=== PATIENT | male | born 1950 | race Caucasian/White ===

== ENCOUNTER 2017-11-22 08:10 | Inpatient (IN) | payer MEDICARE, BC ==
[2017-11-22] MEDS ORDERED: SODIUM CHLORIDE 0.9% 1,000 ML IV STA (08:14)
[2017-11-22] MEDS ORDERED: HEPARIN SODIUM,PORCINE 5,000 UNIT/ML 1 ML VIAL IV PRN (08:14)
[2017-11-22] MEDS ORDERED: HEPARIN SODIUM,PORCINE 5,000 UNIT/ML 1 ML VIAL IV ONE (08:14)
[2017-11-22] MEDS ORDERED: ASPIRIN 81 MG PO STA (08:14)
[2017-11-22] MEDS ORDERED: HEPARIN SOD,PORK IN 0.45% NACL 25,000 UNIT in 0.45% NACL 1 500ML.BAG IV SCH (08:15)
--- NOTE | 2017-11-22 08:17 | ED ---
General Adult HPI - General Stated complaint: Poss STEMI Time Seen by Provider: 11/22/17 08:14 Source: RN notes reviewed, old records reviewed - History of Present Illness Initial comments: This is a 67-year-old male the ER for evaluation significant chest pain significant acute chest pain. Patient's brought in by EMS for evaluation, patient is having severe anterior chest pain with heaviness, shortness of breath positive diaphoresis. Patient does have history of CVA with no deficit, no heart history - Related Data Home Medications Medication Instructions Recorded Confirmed Aspirin [Adult Low Dose Aspirin EC] 81 mg PO HS 12/20/14 11/22/17 Atorvastatin [Lipitor] 20 mg PO HS 12/20/14 11/22/17 Fenofibric Acid (Choline) 135 mg PO HS 12/20/14 11/22/17 [Trilipix] Losartan/Hydrochlorothiazide 1 tab PO DAILY 12/20/14 11/22/17 [Losartan-Hctz 100-25 mg Tab] Multivit-Mins/Iron/Folic/Lycop 1 tab PO DAILY 12/20/14 11/22/17 [Centrum Men's Tablet] Testosterone Cypionate 200 mg IM Q14D 12/20/14 11/22/17 [Depo-Testosterone] amLODIPine [Norvasc] 5 mg PO BID 12/20/14 11/22/17 carBAMazepine [TEGretol XR] 200 mg PO DAILY 12/20/14 11/22/17 Cholecalciferol [Vitamin D3] 1,000 unit PO DAILY 11/22/17 11/22/17 Ezetimibe [Zetia] 10 mg PO DAILY 11/22/17 11/22/17 Previous Rx's Medication Instructions Recorded Carvedilol [Coreg] 6.25 mg PO BID-W/MEALS #60 tab 11/25/17 Nitroglycerin Sl Tabs [Nitrostat] 0.4 mg SUBLINGUAL Q5M PRN #25 tab 11/25/17 Ticagrelor [Brilinta] 90 mg PO BID #60 tab 11/25/17 Allergies Allergy/AdvReac Type Severity Reaction Status Date / Time No Known Allergies Allergy Verified 11/22/17 08:44 Review of Systems ROS Statement: Those systems with pertinent positive or pertinent negative responses have been documented in the HPI. ROS Other: All systems not noted in ROS Statement are negative. Past Medical History Past Medical History: CVA/TIA, GERD/Reflux, Hyperlipidemia, Hypertension, Osteoarthritis (OA), Sleep Apnea/CPAP/BIPAP Additional Past Medical History / Comment(s): 12/20/14 Pt is a direct admit for infected L elbow. Pt notices swelling and pain and redness in L elbow starting about 3 weeks ago. He has completed 2 different p.o. ABX. Other HX: Recent stress test, U/S of caratids and echo all normal, 1998 TIA, MAX with CPAP use, nephrolithiasis and has 2 kidney stones still in kidney x 10 yrs, crush injury yrs ago involving 2 vertebrae low back and L ankle, L leg larger due to injury, low testosterone, 2008 L rib fxs, cervical pain in past with numbness and tingling bilateral arms-much better after surgery, L/R knee arthritic pain, occasional cough, History of Any Multi-Drug Resistant Organisms: None Reported Past Surgical History: Back Surgery, Orthopedic Surgery, Tonsillectomy Additional Past Surgical History / Comment(s): 2008 repair L thoracic hernia ( between ribs) with rib bx-benign, cervical injections 6 cervical fusions done in 2 separate cervical surgeries, 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 Past Anesthesia/Blood Transfusion Reactions: Postoperative Nausea & Vomiting ( PONV) Past Psychological History: No Psychological Hx Reported Additional Psychological History / Comment(s): Pt resides alone. He is independent. He uses no device. He drives. He normally works out daily. 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 He was in the , the [employer] when he was [age]. the only time he smoked was at that time. He denies recreational drug use. No significant difficulties with alcohol. He has no international travels. No animal exposures. Smoking Status: Former smoker Past Alcohol Use History: Occasional Additional Past Alcohol Use History / Comment(s): Pt quiet smoking in 1973 and smoked for about 5-6 yrs. Past Drug Use History: None Reported - Past Family History Father Family Medical History: CVA/TIA Additional Family Medical History / Comment(s): Father of CVA at age 80 yrs. Mother Family Medical History: Cancer Additional Family Medical History / Comment(s): Mother had multiple types of cancers. She at age 92 yrs. General Exam General appearance: alert, in no apparent distress Head exam: Present: atraumatic, normocephalic, normal inspection Eye exam: Present: normal appearance, PERRL, EOMI. Absent: scleral icterus, conjunctival injection, periorbital swelling ENT exam: Present: normal exam, mucous membranes moist Neck exam: Present: normal inspection. Absent: tenderness, meningismus, lymphadenopathy Respiratory exam: Present: normal lung sounds bilaterally. Absent: respiratory distress, wheezes, rales, rhonchi, stridor Cardiovascular Exam: Present: regular rate, normal rhythm, normal heart sounds. Absent: systolic murmur, diastolic murmur, rubs, gallop, clicks GI/Abdominal exam: Present: soft, normal bowel sounds. Absent: distended, tenderness, guarding, rebound, rigid Extremities exam: Present: normal inspection, full ROM, normal capillary refill. Absent: tenderness, pedal edema, joint swelling, calf tenderness Back exam: Present: normal inspection Neurological exam: Present: alert, oriented X3, CN II-XII intact Psychiatric exam: Present: normal affect, normal mood Skin exam: Present: warm, dry, intact, normal color. Absent: rash Course Vital Signs 11/22/17 11/22/17 11/22/17 08:14 08:25 08:37 Temperature 96.9 F L Pulse Rate 69 48 L 48 L Respiratory 18 18 18 Rate Blood Pressure 122/67 116/67 129/72 O2 Sat by Pulse 96 94 L 97 Oximetry - Reevaluation(s) Reevaluation #1: Code STEMI is paged, patient is seen by cardiology here in emergency room and taken to research laboratory manager Medical Decision Making - Medical Decision Making 67 male the ER for evaluation chest pain, positive STEMI and EKG, patient admitted for cardiac treatment evaluation, monitoring hemodynamic - Lab Data Result diagrams: 11/25/17 06:27 11/25/17 06:27 - Radiology Data Radiology results: report reviewed (Chest x-rays negative), image reviewed Critical Care Time Critical Care Time: Yes Total Critical Care Time: 31 Disposition Clinical Impression: ST elevation myocardial infarction (STEMI) Disposition: ADMITTED IP TO THIS HOSP Condition: Serious Is patient prescribed a controlled substance at d/c from ED?: No
--- NOTE | 2017-11-22 08:35 | XR ---
EXAMINATION TYPE: XR chest 1V portable DATE OF EXAM: 11/22/2017 COMPARISON: Prior chest x-ray 12/24/2008 HISTORY: Chest pain, myocardial infarction TECHNIQUE: Single frontal view of the chest is obtained. FINDINGS: Patient is rotated and lung volumes are low, technique is apical lordotic. Heart size may be accentuated by rotation. There are overlying cardiac leads. Postop change noted to the cervical sp ine. There is no evident airspace disease, pneumothorax, or pleural effusion. Central vascularity is mildly prominent. IMPRESSION: Rotated exam. Difficult to exclude some pulmonary venous hypertension, early interstitia l edema. Follow-up recommended.
[2017-11-22 08:42] LABS: Albumin 3.7 g/dL (3.5-5.0); Calcium 9.2 mg/dL (8.4-10.2); Magnesium 1.7 mg/dL (1.6-2.3); Potassium 4.5 mmol/L (3.5-5.1); Total Bilirubin 0.4 mg/dL (0.2-1.3); Total Protein 6.1 g/dL (6.3-8.2)
[2017-11-22 08:44] LABS: RDW 13.4 % (11.5-15.5)
[2017-11-22 08:47] LABS: Basophils % (A) 1 %; Eosinophils # (A) 0.2 k/uL (0-0.7); Eosinophils % (A) 3 %; HGB 18.1 gm/dL (13.0-17.5); Lymphocytes % (A) 28 %; MCH 29.6 pg (25.0-35.0); MCHC 32.4 g/dL (31.0-37.0); MCV 91.3 fL (80.0-100.0); Mean Platelet Volume 7.2; Monocytes # (A) 0.4 k/uL (0-1.0); Monocytes % (A) 6 %; Neutrophils # (A) 4.2 k/uL (1.3-7.7); Neutrophils % (A) 59 %; Platelet Count 220 k/uL (150-450); WBC 7.1 k/uL (3.8-10.6)
[2017-11-22 08:48] LABS: HCT 55.7 % (39.0-53.0)
[2017-11-22] MEDS ORDERED: SODIUM CHLORIDE 0.9% 1,000 ML IV ONE (08:49)
[2017-11-22] MEDS ORDERED: LIDOCAINE 1% INJ 10MG/ML (20 ML MDV) ONE (08:50)
[2017-11-22] MEDS ORDERED: MIDAZOLAM 2 MG/2 ML VIAL ONE (08:51)
[2017-11-22] MEDS ORDERED: diphenhydrAMINE 50 MG/ML 1 ML VIAL ONE (08:51)
[2017-11-22] MEDS ORDERED: LIDOCAINE 1% INJ 10MG/ML (20 ML MDV) SQ ONE (08:55)
[2017-11-22] MEDS ORDERED: NITROGLYCERIN SL TABS 0.4 MG TAB SUBLINGUAL STA (08:58)
[2017-11-22] MEDS ORDERED: ATORVASTATIN 80 MG TAB PO SCH (09:00)
[2017-11-22] MEDS ORDERED: MIDAZOLAM 2 MG/2 ML VIAL IVP ONE ×2 (09:03→09:35)
[2017-11-22] MEDS ORDERED: diphenhydrAMINE 50 MG/ML 1 ML VIAL IVP ONE (09:03)
[2017-11-22] MEDS ORDERED: TICAGRELOR 90 MG TAB ONE (09:04)
--- NOTE | 2017-11-22 09:04 | CONS ---
CONSULTATION A 67-year-old male patient presented to the hospital after experiencing chest heaviness and tightness that started while he was eating breakfast. Discomfort started about 45 minutes prior to presentation. He called EMS. The EMS ECG showed mild ST elevation in the inferior leads. Blood pressure in the 90s. He is still experiencing chest discomfort while he is in the ER. His repeat 12-lead ECG confirms ST elevation in the inferior leads. His blood pressure is 122/67 mmHg, pulse rate in the 60s, afebrile 96.9 degree Fahrenheit. PAST HISTORY: Past history of hypertension and dyslipidemia. He takes antihypertensive therapy as well as medication for dyslipidemia. He is a patient of Dr. Zamora and just saw him. MEDICATIONS: Medications were reviewed and documented in the chart include aspirin, atorvastatin, fenofibric acid, losartan hydrochlorothiazide, multivitamins, amlodipine. He also takes Tegretol. ALLERGIES: No known drug allergies. He has a history of hypertension, dyslipidemia, history of CVA, osteoarthritis, and sleep apnea and uses CPAP mask. He is a nondiabetic. SOCIAL HISTORY: No history of smoking. REVIEW OF SYSTEMS: No fever, chills, or rigors. No cough or expectoration. No nausea, vomiting, or diarrhea. No hematuria or dysuria. Past history of strokes. History of seizures. Complaining of precordial tightness. IMPRESSION: 1. A 67-year-old male patient who presented to the emergency room for chest tightness that started about 45 minutes prior to presentation associated with low blood pressure according to the EMS personnel with ST elevation in the inferior leads consistent with an inferior wall myocardial infarction, acute. 2. Hypertension. 3. Dyslipidemia. 4. Obstructive sleep apnea. SUGGEST: Proceed with coronary angiography urgently. Discussed with Dr. Zamora, who is in the of a difficult coronary intervention. Will have Dr. Berumen proceed with coronary angiography and coronary stenting. 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 MMODL / IJN: [id number] /
[2017-11-22 09:05] LABS: Creatine Kinase 168 U/L (55-170)
[2017-11-22] MEDS ORDERED: BIVALIRUDIN 250 MG VIAL IV ONE ×3 (09:05)
[2017-11-22] MEDS ORDERED: BIVALIRUDIN 250 MG in SODIUM CHLORIDE 0.9% 50 ML IV ONE (09:05)
[2017-11-22] MEDS ORDERED: TICAGRELOR 90 MG TAB PO ONE (09:05)
[2017-11-22] MEDS ORDERED: IOPAMIDOL-370 100ML BTL INJ ONE ×2 (09:17→09:36)
[2017-11-22 09:18] LABS: Creatine Kinase MB 3.2 ng/mL (0.0-2.4); Troponin I <0.012 ng/mL (0.000-0.034)
[2017-11-22] MEDS ORDERED: NITROGLYCERIN SL TABS 0.4 MG TAB SUBLINGUAL PRN (09:52)
[2017-11-22] MEDS ORDERED: ZOLPIDEM 5 MG TAB PO PRN (09:52)
[2017-11-22] MEDS ORDERED: ATROPINE SULFATE 0.1 MG/ML 10ML SYRINGE IV PRN (09:52)
[2017-11-22] MEDS ORDERED: RX INFO: IV CONTRAST WAS GIVEN 1 EACH MISC MISCELLANE PRN (09:52)
[2017-11-22] MEDS ORDERED: MAG HYDROX/AL HYDROX/SIMETH 30 ML CUP PO PRN (09:52)
[2017-11-22] MEDS ORDERED: SODIUM CHLORIDE 0.9% 1,000 ML IV SCH (10:00)
[2017-11-22] MEDS ORDERED: MORPHINE SULFATE 2 MG/ML SYRINGE IVP PRN (10:25)
[2017-11-22] MEDS ORDERED: MORPHINE SULFATE 2 MG/ML SYRINGE ONE (10:28)
[2017-11-22] MEDS ORDERED: MORPHINE SULFATE 2 MG/ML SYRINGE IVP STA (10:30)
--- NOTE | 2017-11-22 10:34 | CC ---
CARDIAC CATHETERIZATION REPORT Mr. Coley is a 67-year-old male with a known history of hypertension who presented with symptoms of chest discomfort and ST-segment elevation inferiorly. He was evaluated by Dr. Orr and recommendation made regarding cardiac catheterization. The procedure as well as the risks and the complications were discussed with the patient who is in full understanding and agreement. The patient was brought to the clinical laboratory manager in the semi-sedated state after receiving fentanyl and Benadryl and achieving moderate conscious sedated state. Dr. Julia Berumen proceeded and placed a 6-American sheath in the right femoral artery. Subsequently, I proceeded to obtain cardiac catheterization using 6-American 4 bend right and left Win catheter. Multiple views of the coronary artery including hemiaxial views obtained. Following that, angioplasty and stenting was performed. Following that, a 6- American tight pigtail catheter was introduced in the left ventricle and a 30-degree MAS view of the left ventricle was obtained. At the end of the procedure, catheters were removed. The sheath was sutured in place. FINDINGS: FLUOROSCOPY: There was calcification involving the left anterior descending artery. LEFT MAIN: This is a large-sized vessel bifurcating left in left circumflex, left anterior descending artery. Left main coronary artery has no evidence of high-grade stenosis. LEFT ANTERIOR DESCENDING ARTERY: This is a large-sized vessel reaching toward the apex with a wraparound apex segment giving rise to 2 diagonal branches of moderate caliber. The left anterior descending artery and its branches have no evidence of obstructive coronary disease. LEFT CIRCUMFLEX: This is a nondominant vessel giving rise to 2 obtuse marginal branches. The proximal segment of the left circumflex has a plaque of about 40% to 50%. In the mid segment, there is a 99% stenosis in a long segment. The rest of the vessel has no high-grade stenosis. RIGHT CORONARY ARTERY: This vessel is totally occluded in the mid segment, tortuous in the proximal segment with no antegrade flow. LEFT VENTRICULOGRAM: Left ventriculogram is performed in 30-degree MAS view and revealed normal left ventricular size and systolic function. Ejection fraction is estimated at 50% to 55%. There was no significant mitral regurgitation. HEMODYNAMICS: There was no gradient across the aortic valve. The left ventricular end- diastolic pressure was 16 to 20 mmHg. CONCLUSION: 1. Acutely occluded mid right coronary artery. 2. Significant disease in the mid left circumflex. 3. Preserved left ventricular size and systolic function. RECOMMENDATION: In view of finding anatomy, I recommend proceeding with angioplasty and stenting of the right coronary artery. The procedure as well as the risks and the complications were discussed with the patient who is in full understanding and agreement. SONNY / ALEAH: [id number] /
[2017-11-22 10:55] LABS: Glucose,Whole Blood 150 mg/dL (75-99)
--- NOTE | 2017-11-22 11:31 | PTCA ---
PERCUTANEOUSTRANS CORORONARY ANGIOGRAPHY Mr. Coley is a 67-year-old male with no history of coronary artery disease who presented with an acute myocardial infarction, underwent cardiac catheterization, was found to have a totally occluded mid right coronary artery. In view of that, recommendation was made regarding angioplasty and stenting. The procedure as well as the risks and the complication were discussed with the patient who is in full understanding and agreement. PROCEDURE: A 6-Sami FR4 guiding catheter was introduced in the system. After cannulating the ostium of the right coronary artery, 0.014 balanced medium weight J-wire was advanced with the help of a straight FineCross and the total occlusion was crossed. The FineCross catheter was removed and a 2.5 x 15 mm Xience Samira stent was deployed, post dilated at 14 atmospheres. After the last inflation, after appropriate wait, the balloon and the guidewire were withdrawn back in the guiding catheter. Images were obtained, repeated. Those images reveal stable successful stenting. At that point, the guiding catheter, the balloon and the guidewire were removed and a left ventriculogram was performed. Following that, the sheath was sutured in place. The patient was returned to his room in stable condition. Of note, his chest discomfort improved at the end procedure and there was no significant ST-segment changes. He received loading dose of Brilinta as well as Angiomax per protocol. RESULTS: Successful stenting of the mid right coronary artery with reduction of stenosis from 100% to 0%. RECOMMENDATION: The patient will be continued on aspirin, Brilinta, beta franko, and statin. The importance of dual antiplatelet treatment were discussed with the patient and his family who are in full understanding and agreement. The patient will be brought back on an elective basis to undergo stenting of the left circumflex. The duration of the procedure is 30 minutes. MMODL / IJN: [id number] /
[2017-11-22 12:06] LABS: INR 1.2 (<1.2)
[2017-11-22 12:44] LABS: Cholesterol 136 mg/dL (<200); HDL Cholesterol 38 mg/dL (40-60); LDL Cholesterol,Calculated 43 mg/dL (0-99); Triglycerides 276 mg/dL (<150)
[2017-11-22 13:17] LABS: Partial Thromboplastin Time 34.2 sec (22.0-30.0); Prothrombin Time 11.4 sec (9.0-12.0)
[2017-11-22] MEDS ORDERED: amLODIPine 5 MG TAB PO STA (13:22)
[2017-11-22] MEDS: METOPROLOL TARTRATE 25 MG TAB PO SCH ×2 (13:22→21:54)
[2017-11-22 15:38] VITALS: BMI 32.1
[2017-11-22 18:40] LABS: Creatine Kinase MB 20.6 ng/mL (0.0-2.4)
[2017-11-22 18:50] LABS: Troponin I 3.87 ng/mL (0.000-0.034)
[2017-11-22] MEDS: TICAGRELOR 90 MG TAB PO SCH (21:54)
[2017-11-22] MEDS: amLODIPine 5 MG TAB PO SCH (21:55)
--- NOTE | 2017-11-22 22:43 | HP ---
HISTORY AND PHYSICAL DATE OF ADMISSION: 11/22/2017 PRESENTING COMPLAINT: Chest pain. HISTORY OF PRESENTING COMPLAINT: This is a very pleasant 67-year-old patient of Dr. Palmer Corona. Chronic stable medical conditions include GERD, hypertension, hyperlipidemia, osteoarthritis, seizure disorder, obstructive sleep apnea, uses a CPAP machine. The patient normally meets with his friends for breakfast and did the same this morning. He noticed his heartburn progressively started getting worse, then he realized he could not even keep his head up; he became dizzy, lightheaded. The pain did not radiate to the neck or arm. He told friends to call the EMS and they took him outside, put him on a chair. He felt extremely weak, started pouring out sweat. The patient was brought into the ER. Patient's troponins started to peak up. The patient was taken to the cardiac slab polisher, was found have a 100% lesion in the RCA. Successful angioplasty and stenting was carried out. The patient was put in the ICU. Currently he is free of chest pain. REVIEW OF SYSTEMS: CONSTITUTIONAL: Tired. HEENT: None. RESPIRATORY: None. CARDIOVASCULAR: As above. GASTROINTESTINAL: Heartburn. GENITOURINARY: None. MUSCULOSKELETAL: Arthritic pain in the joints. DERMATOLOGICAL: None. HEMATOLOGICAL: None. LYMPHATICS: None. PSYCHIATRY: None. NEUROLOGICAL: Occasional seizures. PAST MEDICAL HISTORY: 1. TIA in 1998. 2. GERD. 3. Hyperlipidemia. 4. Hypertension. 5. Osteoarthritis. 6. Seizure disorder. 7. Obstructive sleep apnea. Uses a CPAP machine. 8. Nephrolithiasis. 9. Crush injury years ago involving two vertebrae in the low back. 10.Hypotestosteronism. 11.Left rib fractures. 12.Arthritic pain in the knees and hands. PAST SURGICAL HISTORY: 1. Back surgery. 2. Left thoracic hernia repair. 3. Six cervical fusions. 4. Left thumb surgery. 5. Right knee arthroscopy. 6. Colonoscopy with benign polypectomy. 7. Bilateral carpal tunnel release. 8. Bilateral LASIK eye surgery. SOCIAL HISTORY: Lives alone. 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 Smoked for a total of 5 years and stopped in 1971. No alcohol. FAMILY HISTORY: Father at age of 80, cause unknown. HOME MEDICATIONS: 1. Tegretol XR 200 mg a day. 2. Norvasc 5 mg b.i.d. 3. Depo testosterone 200 mg IM every 14 days. 4. Cialis 5 mg p.o. daily. 5. Centrum Men's 1 tablet p.o. daily. 6. Losartan/hydrochlorothiazide 100/25 one tablet p.o. daily. 7. Trilipix 135 mg p.o. at bedtime. 8. Zetia 10 mg p.o. daily. 9. Vitamin D3 1000 units p.o. daily. 10.Zyrtec-D one tablet p.o. q.12 p.r.n. 11.Lipitor 20 mg at bedtime. 12.Aspirin 81 mg p.o. at bedtime. ALLERGIES: NONE. PHYSICAL EXAMINATION: VITAL SIGNS ON PRESENTATION: Temperature 96.9, pulse 69, respiration 18, blood pressure 122/67, pulse ox 96% on room air. GENERAL APPEARANCE: Well built; BMI 32.2. Sitting on the edge of the bed. EYES: Pupils equal. Conjunctivae normal. HEENT: External appearance of nose and ears normal. Oral cavity normal. NECK: JVD not raised. Mass not palpable. RESPIRATORY: Effort normal. Lungs are clear. CARDIOVASCULAR: First and second sounds normal. No edema. ABDOMEN: Soft, nontender. Liver and spleen not palpable. LYMPHATIC: No lymph node palpable in neck or axillae. PSYCHIATRY: Alert and oriented x3. Mood and affect normal. NEUROLOGICAL: Pupils equal. Cranial nerves grossly intact. Power and sensation grossly intact. INVESTIGATIONS: White count 7.1, hemoglobin 18.1, potassium 4.5, BUN 29, creatinine 1.06, troponin less than 0.012, 0.045, 3.8. LDL 43. EKG tracing, personally reviewed by me, showed sinus bradycardia, non-specific ST and T- wave changes. Chest x-ray film, personally reviewed by me, is a portable film, poor views. ASSESSMENT: 1. Acute [id number] myocardial infarction leading to angioplasty and stenting to the right coronary artery. 2. Gastroesophageal reflux disease. 3. Hyperlipidemia. 4. Essential hypertension. 5. Primary osteoarthritis. 6. Chronic seizure, epilepsy. 7. Obstructive sleep apnea. Uses a CPAP machine. PLAN: Patient is status post angioplasty and stenting, currently on Norvasc, aspirin, Lipitor, Tegretol, Zetia, Lopressor, Hyzaar, Brilinta. Care was discussed. Questions were answered. The patient was seen by Dr. Orr from Cardiology and Dr. Zamora from Interventional Cardiology. MMODL / IJN: [id number] /
[2017-11-22] MEDS: FENOFIBRATE 160 MG TAB PO SCH (23:30)
[2017-11-23 00:43] LABS: Creatine Kinase MB 29.8 ng/mL (0.0-2.4)
[2017-11-23 00:46] LABS: Troponin I 8.87 ng/mL (0.000-0.034)
[2017-11-23 05:11] LABS: Mean Platelet Volume 7.1; Platelet Count 222 k/uL (150-450)
[2017-11-23 05:30] LABS: Anion Gap 7 mmol/L; Blood Urea Nitrogen 22 mg/dL (9-20); Calcium 9.2 mg/dL (8.4-10.2); Carbon Dioxide 26 mmol/L (22-30); Chloride 102 mmol/L (98-107); Cholesterol 133 mg/dL (<200); Glucose 146 mg/dL (74-99); HDL Cholesterol 41 mg/dL (40-60); LDL Cholesterol,Calculated 48 mg/dL (0-99); Potassium 3.9 mmol/L (3.5-5.1); Sodium 135 mmol/L (137-145); Triglycerides 222 mg/dL (<150)
[2017-11-23] MEDS ORDERED: ASPIRIN 325 MG TAB PO STA (08:23)
[2017-11-23] MEDS ORDERED: ATORVASTATIN 80 MG TAB PO STA (08:23)
[2017-11-23] MEDS ORDERED: SODIUM CHLORIDE 0.9% 1,000 ML in EMPTY BAG 1 BAG IV ONE (08:23)
[2017-11-23] MEDS ORDERED: NITROGLYCERIN SL TABS 0.4 MG TAB SUBLINGUAL PRN (08:23)
[2017-11-23] MEDS ORDERED: ALPRAZolam 0.5 MG TAB PO PRN (08:23)
[2017-11-23] MEDS ORDERED: ALPRAZolam 0.25 MG TAB PO PRN (08:23)
[2017-11-23] MEDS ORDERED: ASPIRIN 325 MG TAB PO SCH (09:00)
[2017-11-23] MEDS ORDERED: ASPIRIN 81 MG PO SCH (09:00)
[2017-11-23] MEDS: amLODIPine 5 MG TAB PO SCH ×2 (09:04→20:28)
[2017-11-23] MEDS: CHOLECALCIFEROL 1,000 UNIT TAB PO SCH (09:04)
[2017-11-23] MEDS: TICAGRELOR 90 MG TAB PO SCH ×2 (09:04→21:40)
[2017-11-23] MEDS: METOPROLOL TARTRATE 25 MG TAB PO SCH (09:04)
[2017-11-23] MEDS: EZETIMIBE 10 MG TAB PO SCH (09:05)
[2017-11-23] MEDS: LOSARTAN-HCTZ 50-12.5 MG 1 EACH TAB PO SCH (09:06)
--- NOTE | 2017-11-23 10:15 | ECHOF ---
Referral Reason:mi MEASUREMENTS -------- HEIGHT: 175.3 cm WEIGHT: 99.8 kg BP: 134/80 RVIDd: 3.3 cm (< 3.3) IVSd: 1.1 cm (0.6 - 1.1) LVIDd: 4.5 cm (3.9 - 5.3) LVPWd: 1.1 cm (0.6 - 1.1) IVSs: 1.1 cm LVIDs: 2.2 cm LVPWs: 1.3 cm Ao Diam: 3.3 cm (2.0 - 3.7) AV Cusp: 2.2 cm (1.5 - 2.6) LA Diam: 3.2 cm (2.7 - 3.8) MV EXCURSION: 9.371 mm (> 18.000) MV EF SLOPE: 61 mm/s (70 - 150) EPSS: 0.9 cm MV E Kevyn: 0.70 m/s MV DecT: 235 ms MV A Kevyn: 0.97 m/s MV E/A Ratio: 0.72 RAP: 5.00 mmHg RVSP: 11.51 mmHg FINDINGS -------- Sinus rhythm. This was a technically good study. The left ventricular size is normal. There is borderline concentric left ventricular hypertrophy. Overall left ventricular systolic function is low-normal with, an EF between 50 - 55 %. Basal infe rolateral hypokinesis. The right ventricle is normal in size and function. The left atrium is normal in size. The right atrium is normal in size. Aortic valve is trileaflet and is mildly thickened. The mitral valve leaflets are mildly thickened. Mild mitral annular calcification present. There is trace mitral regurgitation. Trace tricuspid regurgitation present. The right ventricular systolic pressure, as measured by Dopp ler, is 11.51mmHg. Pulmonic valve appears structurally normal. The aortic root size is normal. Normal inferior vena cava with normal inspiratory collapse consistent with estimated right atrial pre ssure of 5 mmHg. The pericardium is normal. CONCLUSIONS -------- 1. Sinus rhythm. 2. This was a technically good study. 3. The left ventricular size is normal. 4. There is borderline concentric left ventricular hypertrophy. 5. Overall left ventricular systolic function is low-normal with, an EF between 50 - 55 %. 6. Basal inferolateral hypokinesis. 7. The right ventricle is normal in size and function. 8. The left atrium is normal in size. 9. The right atrium is normal in size. 10. Aortic valve is trileaflet and is mildly thickened. 11. The mitral valve leaflets are mildly thickened. 12. Mild mitral annular calcification present. 13. There is trace mitral regurgitation. 14. Trace tricuspid regurgitation present. 15. The right ventricular systolic pressure, as measured by Doppler, is 11.51mmHg. 16. Pulmonic valve appears structurally normal. 17. The aortic root size is normal. 18. Normal inferior vena cava with normal inspiratory collapse consistent with estimated right atrial pressure of 5 mmHg. 19. The pericardium is normal. HIGH SCHOOL MATH TUTOR: Idania Richards RDCS
--- NOTE | 2017-11-23 14:11 | P.PN ---
Subjective Patient is doing well. He is a vague discomfort which is very mild different from when he came in and did he underwent coronary stenting yesterday No dizziness no lightheadedness or palpitations Heart rate in the 60s blood pressure elevated vein 150-160 mmHg systolic Heart sounds are normal no rub no gallop Breath sounds are clear no adventitious sounds no rhonchi no crackles Abdomen is soft nontender Access sites have healed well Impression Acutely occluded mid RCA Inferior wall [place] status post stenting 99% left circumflex stenosis. Moderate disease in the proximal left circumflex Left ventricle ejection fraction 50 heparin for 5% without any significant mitral regurgitation. End diastolic pressure 16 mmHg Suggest Patient is on amlodipine 5 g twice daily. He is on low-dose losartan as well as metoprolol Suggest Stop metoprolol start carvedilol 6.25 mg twice daily and maximize angiotensin receptor blockers after second procedure tomorrow. Patient is waiting stenting of the left circumflex tomorrow as a staged procedure Objective - Vital Signs Vital signs: Vital Signs Temp 97.6 F 11/23/17 12:00 Pulse 71 11/23/17 14:00 Resp 20 11/23/17 14:00 BP 158/88 11/23/17 14:00 Pulse Ox 94 L 11/23/17 14:00 Intake & Output 11/22/17 11/23/17 11/23/17 18:59 06:59 18:59 Intake Total 1135.2 240 480 Output Total 1300 1325 550 Balance -164.8 -1085 -70 Weight 98.883 kg 100.2 kg Intake: IV 1135.2 Sodium Chloride 0.9% 1, 900 000 ml @ 100 mls/hr IV . Q10H [facility] Rx#:[id number] Oral 240 480 Output: Urine 1300 1325 550 Other: Voiding Method Urinal Toilet Toilet Urinal Urinal # Voids 0 1 ABP, PAP, CO, CI - Last Documented Arterial Blood Pressure 184/86 - Labs CBC & Chem 7: 11/23/17 04:33 11/23/17 04:33 Labs: Abnormal Lab Results - Last 24 Hours (Table) 11/22/17 11/22/17 11/23/17 Range/Units 17:28 23:45 04:33 Sodium 135 L (137-145) mmol/L BUN 22 H (9-20) mg/dL Glucose 146 H (74-99) mg/dL Total Creatine Kinase 340 H 454 H (55-170) U/L CK-MB (CK-2) 20.6 H 29.8 H (0.0-2.4) ng/mL Troponin I 3.870 H* 8.870 H* (0.000-0.034) ng/mL Triglycerides 222 H (<150) mg/dL
[2017-11-23] MEDS: CARVEDILOL 6.25 MG TAB PO SCH (17:47)
--- NOTE | 2017-11-23 19:38 | PN ---
PROGRESS NOTE DATE OF SERVICE: 11/23/2017 PRESENTING COMPLAINT: Chest pain. INTERVAL HISTORY: This patient presented with acute PR with coronary intervention of the RCA. The patient had episodes of slight discomfort today. Patient is in the ICU. Cardiology is planning to do an intervention on circumflex tomorrow. Breathing is stable. Tolerating a diet. REVIEW OF SYSTEMS: Done for constitutional, cardiovascular, GI, pulmonary; relevant findings as above. CURRENT MEDICATIONS: Reviewed. They include aspirin and Brilinta. PHYSICAL EXAMINATION: Temperature 97.6, pulse 78, respiration 21, blood pressure 166/83, pulse ox 95% on 2 L. GENERAL APPEARANCE: Lying in bed, comfortable. EYES: Pupils equal. Conjunctivae normal. HEENT: External appearance of nose and ears normal. Oral cavity normal. NECK: JVD not raised. Mass not palpable. RESPIRATORY: Effort normal. Lungs are clear. CARDIOVASCULAR: First and second sounds normal. No edema. ABDOMEN: Soft, non-tender. Liver and spleen not palpable. PSYCHIATRY: Alert and oriented x3. Mood and affect normal. INVESTIGATIONS: Potassium 3.9, BUN 22, creatinine 0.90. Troponin peaked at 8.8 yesterday. ASSESSMENT: 1. Acute nur-LD-kysziwclw myocardial infarction leading to angioplasty and stenting to the right coronary artery, now pending intervention to the circumflex. 2. Gastroesophageal reflux disease. 3. Hyperlipidemia. 4. Essential hypertension. 5. Primary osteoarthritis. 6. Chronic seizure/epilepsy disorder. 7. Obstructive sleep apnea. Uses CPAP machine. PLAN: Continue current medication and treatment plan. Await further intervention per Cardiology. Will follow. MMODL / IJN: [id number] /
[2017-11-23] MEDS: FENOFIBRATE 160 MG TAB PO SCH (20:28)
[2017-11-23] MEDS ORDERED: SALINE NASAL GEL 14.1 GM TUBE TOPICAL PRN (23:40)
[2017-11-23] MEDS ORDERED: diphenhydrAMINE 25 MG CAP PO PRN (23:55)
[2017-11-24] MEDS: CARVEDILOL 6.25 MG TAB PO SCH ×2 (04:47→17:47)
[2017-11-24] MEDS ORDERED: ATORVASTATIN 80 MG TAB PO ONE (06:00)
[2017-11-24] MEDS ORDERED: ASPIRIN 325 MG TAB PO ONE (06:00)
[2017-11-24 06:31] LABS: Mean Platelet Volume 6.9; Platelet Count 194 k/uL (150-450)
[2017-11-24] MEDS ORDERED: VERAPAMIL 2.5 MG/ML 2 ML AMP ONE (07:21)
[2017-11-24] MEDS ORDERED: fentaNYL (PF) 50 MCG/ML 2 ML AMP ONE (07:21)
[2017-11-24] MEDS ORDERED: fentaNYL (PF) 50 MCG/ML 2 ML AMP IVP ONE (07:30)
[2017-11-24] MEDS ORDERED: LIDOCAINE 2% (PF) 20 MG/ML 2 ML VIAL SQ ONE (07:33)
[2017-11-24] MEDS ORDERED: IV FLUID CONTINUATION 1,000 ML IV ONE (07:34)
[2017-11-24] MEDS ORDERED: VERAPAMIL SYRINGE (5 MG/10 ML) INTRAARTER ONE (07:35)
[2017-11-24] MEDS ORDERED: BIVALIRUDIN BOLUS 250 MG/50 ML IV ONE (07:39)
[2017-11-24] MEDS ORDERED: BIVALIRUDIN 250 MG in SODIUM CHLORIDE 0.9% 50 ML IV ONE (07:39)
[2017-11-24] MEDS ORDERED: LIDOCAINE 1% INJ 10MG/ML (20 ML MDV) ONE (07:52)
[2017-11-24] MEDS ORDERED: LIDOCAINE 1% (PF) 10MG/ML VIAL SQ ONE (07:54)
[2017-11-24] MEDS ORDERED: SODIUM CHLORIDE 0.9% 1,000 ML in EMPTY BAG 1 BAG IV ONE (08:00)
[2017-11-24] MEDS ORDERED: NITROGLYCERIN 1000MCG/10ML SYRINGE INTRACORON ONE (08:14)
[2017-11-24] MEDS ORDERED: IOPAMIDOL-370 125ML BTL INJ ONE (08:17)
[2017-11-24] MEDS ORDERED: TICAGRELOR 90 MG TAB ONE (08:22)
[2017-11-24] MEDS ORDERED: TICAGRELOR 90 MG TAB PO ONE (08:27)
[2017-11-24] MEDS ORDERED: IOPAMIDOL-370 100ML BTL INJ ONE (08:27)
[2017-11-24] MEDS ORDERED: ZOLPIDEM 5 MG TAB PO PRN (08:40)
[2017-11-24] MEDS ORDERED: MAG HYDROX/AL HYDROX/SIMETH 30 ML CUP PO PRN (08:40)
[2017-11-24] MEDS ORDERED: NITROGLYCERIN SL TABS 0.4 MG TAB SUBLINGUAL PRN (08:40)
[2017-11-24] MEDS ORDERED: RX INFO: IV CONTRAST WAS GIVEN 1 EACH MISC MISCELLANE PRN (08:40)
[2017-11-24] MEDS ORDERED: ATROPINE SULFATE 0.1 MG/ML 10ML SYRINGE IV PRN (08:40)
[2017-11-24] MEDS ORDERED: SODIUM CHLORIDE 0.9% 1,000 ML IV SCH (08:45)
--- NOTE | 2017-11-24 09:51 | PTCA ---
PERCUTANEOUSTRANS CORORONARY ANGIOGRAPHY Mr. Coley is a 67-year-old male with known history of hypertension, hyperlipidemia who presented 2 days ago with an acute inferior myocardial infarction. Underwent stenting of a totally occluded right coronary artery, was found to have critical stenosis involving the left circumflex. In view of that, recommendation was made regarding angioplasty and stenting. The procedure as well as the risks and the complications were discussed with the patient who is in full understanding and agreement. PROCEDURE: Patient was brought to catheterization laboratory technician in a fasting semi-sedated state after receiving fentanyl and Benadryl and achieving moderate conscious sedated state. Using Xylocaine anesthesia under sterile technique, a 6-Wallisian sheath was introduced in the right radial artery. Attempts to cannulate the left main using a 6-Wallisian FL3.5 guide, a 6- Wallisian EBU guide and a 6-Wallisian Ikari 3.5 left guide were unsuccessful because of severe tortuosity. At that point, the catheter and the wire were removed and using Xylocaine anesthesia in the Seldinger technique a 6-Wallisian sheath was introduced in the left femoral artery. Selective left coronary angiography was performed using 6-Wallisian EBU 3.75 guide. Following that, the 0.014 balanced medium weight J-wire was advanced and positioned in distal left circumflex. Following that, a 2.5 x 15 mm Xience Alpine stent was deployed post dilated at 14 atmospheres. After removing the balloon a 2.5 x 12 mm Xience Alpine stent was deployed distal to the first one and post dilated at 14 atmospheres. Following that and after removing the balloon, a 2.5 x 18 mm Xience Alpine stent was deployed in the proximal segment at the ostium and post dilated at 16 atmospheres. After the last inflation, after appropriate wait, the balloon and the guidewire were withdrawn back in the guiding catheter. Images were obtained, repeated. Those images reveal stable successful stenting. At that point, the guiding catheter, the balloon and the guidewire were removed. The sheath was sutured in place. The radial sheath was removed and hemostasis was obtained with deployment of TR band. There was no immediate complication. The patient is returned to his room in stable condition. Of note, the patient received Angiomax per protocol. He had no significant chest discomfort or EKG changes with the inflation. RESULTS: 1. Successful stenting of the proximal ostial left circumflex with reduction of stenosis from 80%. 2. Successful stenting of the mid left circumflex with reduction of stenosis from 90% to 0%. RECOMMENDATION: Patient will be continued on aspirin, Brilinta, beta franko, FRANSICO inhibitor, and statin. The importance of dual antiplatelet treatment were discussed with the patient and his family and they in full understanding and agreement. Duration of the procedure is 54 minutes. SONNY / NIEVESN: [id number] /
[2017-11-24] MEDS: ASPIRIN 81 MG PO SCH (10:00)
[2017-11-24] MEDS: TICAGRELOR 90 MG TAB PO SCH ×2 (10:00→20:59)
[2017-11-24] MEDS: amLODIPine 5 MG TAB PO SCH ×2 (10:25→20:59)
[2017-11-24] MEDS: LOSARTAN-HCTZ 50-12.5 MG 1 EACH TAB PO SCH (10:26)
[2017-11-24] MEDS: CHOLECALCIFEROL 1,000 UNIT TAB PO SCH (13:20)
[2017-11-24] MEDS: EZETIMIBE 10 MG TAB PO SCH (13:20)
[2017-11-24] MEDS: FENOFIBRATE 160 MG TAB PO SCH (20:59)
[2017-11-24] MEDS ORDERED: ATORVASTATIN 40 MG TAB PO SCH (21:00)
[2017-11-24] MEDS ORDERED: ATORVASTATIN 20 MG TAB PO SCH (21:00)
--- NOTE | 2017-11-24 22:51 | PN ---
PROGRESS NOTE DATE OF SERVICE: 11/24/2017. PRESENTING COMPLAINT: Chest pain. INTERVAL HISTORY: Patient presented with acute NE with initial coronary intervention to the RCA. The patient is taken back to the hot plate plywood press laborer and had further intervention to the circumflex. Post procedure, lying in bed. No chest pain or shortness of breath. REVIEW OF SYSTEMS: Done for constitutional, cardiovascular, GI, pulmonary and relevant findings as above. CURRENT MEDICATIONS: Reviewed that include aspirin and Brilinta. PHYSICAL EXAMINATION: VITAL SIGNS: Temperature 97, pulse 79, respiration 16, blood pressure 147/73, pulse ox 93 percent on room air. GENERAL APPEARANCE: Lying in bed, comfortable. EYES: Pupils equal, conjunctivae normal. HEENT: External appearance of nose and ears normal. Oral cavity normal. NECK JVD not raised. Mass not palpable. RESPIRATORY: Effort normal. LUNGS are clear. CARDIOVASCULAR: 1st and 2nd sounds normal. No edema. ABDOMEN: Soft, nontender. Liver and spleen not palpable. PSYCHIATRY: Alert and oriented times three. Mood and affect normal. INVESTIGATIONS: Potassium 3.9, BUN 22, creatinine 0.90. ASSESSMENT: 1. Acute non ST elevation myocardial infarction leading to angioplasty and stenting to the RCA followed by circumflex. 2. Gastroesophageal reflux disease. 3. Hyperlipidemia. 4. Essential hypertension. 5. Primary osteoarthritis. 6. Chronic epilepsy disorder. 7. Obstructive sleep apnea uses CPAP machine. PLAN: Continue current medication and treatment plan. Follow orders as per Cardiology. MMODL / IJN: [id number] /
[2017-11-25 06:52] LABS: Mean Platelet Volume 7.1; Platelet Count 197 k/uL (150-450)
[2017-11-25] MEDS: CARVEDILOL 6.25 MG TAB PO SCH (06:52)
[2017-11-25 07:16] LABS: Calcium 9.3 mg/dL (8.4-10.2); Potassium 4.4 mmol/L (3.5-5.1)
[2017-11-25 08:13] VITALS: RESP 16
[2017-11-25] MEDS: ASPIRIN 81 MG PO SCH (10:05)
[2017-11-25] MEDS: amLODIPine 5 MG TAB PO SCH (10:05)
[2017-11-25] MEDS: CHOLECALCIFEROL 1,000 UNIT TAB PO SCH (10:06)
[2017-11-25] MEDS: EZETIMIBE 10 MG TAB PO SCH (10:06)
[2017-11-25] MEDS: LOSARTAN-HCTZ 50-12.5 MG 1 EACH TAB PO SCH (10:07)
[2017-11-25] MEDS: TICAGRELOR 90 MG TAB PO SCH (10:08)
--- NOTE | 2017-11-25 10:56 | P.PN ---
Subjective Progress Note Date: 11/25/17 This is a 67-year-old gentleman with known history of hypertension, hyperlipidemia, prior CVA, sleep apnea, who presented to the hospital with an inferior ST elevation myocardial infarction. He was taken to the cardiac catheterization lab where he underwent angioplasty and stenting of the right coronary artery by Dr. Zamora. Subsequent to that, yesterday patient underwent angioplasty and stenting of the circumflex artery. EKG from this morning shows normal sinus rhythm with no changes from post-PCI. Echocardiogram with Doppler study was performed which revealed an ejection fraction of 50-55%. Patient feels well this morning, he denies any chest pain or difficulty in breathing. Blood pressure 140/80 with a heart rate in the 70s. Sodium 139, potassium 4.4, BUN 23, creatinine 1.0. Objective - Vital Signs Vital signs: Vital Signs Temp 98.0 F 11/25/17 08:00 Pulse 79 11/25/17 08:00 Resp 16 11/25/17 08:00 BP 141/84 11/25/17 08:00 Pulse Ox 94 L 11/25/17 08:00 Intake & Output 11/24/17 11/25/17 11/25/17 18:59 06:59 18:59 Intake Total 386 180 Output Total 1200 Balance -814 180 Weight 97 kg Intake: IV 186 Oral 200 180 Output: Urine 1200 Other: Voiding Method Urinal Toilet Toilet # Voids 1 1 ABP, PAP, CO, CI - Last Documented Arterial Blood Pressure 184/86 - Exam PHYSICAL EXAMINATION: GENERAL: 67-year-old gentleman in no acute distress at the time of my examination HEENT: Head is atraumatic, normocephalic. Pupils equal, round. Sclera anicteric. Conjunctiva are clear. Mucous membranes of the mouth are moist. Neck is supple. There is no elevated jugular venous pressure. No carotid bruit is heard. HEART EXAMINATION: Heart S1, S2 normal. No murmur or gallop heard. CHEST EXAMINATION: Lungs are clear to auscultation and precussion. No chest wall tenderness is noted on palpation or with deep breathing. ABDOMEN: Soft, nontender. Bowel sounds are heard. No organomegaly noted. EXTREMITIES: 2+ peripheral pulses with no evidence of peripheral edema and no calf tenderness noted. Right and left groins are soft, no evidence of any hematoma, mild ecchymosis. Right radial site clean and dry, good distal pulse. NEUROLOGIC patient is awake, alert and oriented X3. . - Labs CBC & Chem 7: 11/25/17 06:27 11/25/17 06:27 Labs: Abnormal Lab Results - Last 24 Hours (Table) 11/25/17 Range/Units 06:27 BUN 23 H (9-20) mg/dL Glucose 114 H (74-99) mg/dL Assessment and Plan Plan: Assessment and plan #[address] elevation myocardial infarction, status post stenting of the RCA and circumflex arteries #2 hypertension #3 hyperlipidemia Plan From cardiology's perspective, patient may be able to be discharged home today. We'll make him a follow-up appointment in the office to see Dr. Zamora next Wednesday. He will continue on dual antiplatelet therapy in the form of Brilinta and aspirin, Lipitor 40 mg daily, Coreg 12.5 mg twice a day, Zetia 10 mg daily, losartan 50/12.52 tablets daily, and sublingual nitroglycerin as needed for chest pain. DNP note has been reviewed, I agree with a documented findings and plan of care. Patient was seen and examined.
[2017-11-25 15:09] VITALS: BP 142/82; PULSE 70; TEMP 97.8
[2017-11-25] MEDS ORDERED: CARVEDILOL 6.25 MG TAB PO SCH (17:30)
[2017-11-25] MEDS ORDERED: CARVEDILOL 12.5 MG TAB PO SCH (17:30)
--- NOTE | 2017-11-26 10:01 | CDI ---
Last Revision, January 2017 Documentation Clarification Form Date: 11/26/17 From: Sheeba Boston Oralia Carter, Chief Information Officer Hours-8:30 am & 5 pm [facility] Date: 11/22/2017 8:14:00 AM Patient Name: Errol Coley Visit Number: [id number] Discharge Date: 11/25/17 ATTENTION: The Clinical Documentation Specialists (CDI) and [facility] Coding Staff appreciate your assistance in clarifying documentation. Please respond to the clarification below the line at the bottom and electronically sign. The CDI & [facility] Coding staff will review the response and follow-up if needed. Please note: Queries are made part of the Legal Health Record. If you have any questions, please contact the author of this message via ITS. Antony Kang MD Conflicting documentation has been found in the medical record. Per cardiology consult & 11/[address] Orr states "ST elevation in the inferior leads consistent with an inferior wall myocardial infarction, acute." Per Dr Zamora cath report "chest discomfort and ST-segment elevation inferiorly ". Per your 11/23 PN "acute nio-RM-youatflbh myocardial infarction". History/Risk Factors: GERD, hyperlipidemia, HTN, OA, epilepsy, MAX EKG: Sinus bradycardia, nonspecific ST and T wave abnormality Treatment: Heart cath, PTCA w MIKAYLA x1, PTCA w MIKAYLA x 2 In your opinion what is the most clinically appropriate diagnosis for this patient? Acute ST myocardial infarction of inferior wall Acute ST myocardial infarction of right coronary artery Acute Non-ST myocardial infarction Other explanation of clinical findings Unable to determine (no explanation for clinical findings) Please continue to document in your progress notes and discharge summary in order to capture severity of illness and risk of mortality. Include clinical findings that support your diagnosis. acute ST elevation myocardial inarction of inferior wall, POA MTDD
--- NOTE | 2017-11-28 21:32 | DS ---
DISCHARGE SUMMARY DATE OF ADMISSION: 11/22/2017 DATE OF DISCHARGE: 11/25/2017 FINAL DIAGNOSES: 1. Acute non-ST elevation myocardial infarction, POA. 2. Gastroesophageal reflux disease. 3. Hyperlipidemia. 4. Essential hypertension. 5. Primary osteoarthritis. 6. Chronic epilepsy disorder. 7. Obstructive sleep apnea uses CPAP machine. PROCEDURE: Angioplasty stenting to RCA and and circumflex. HOSPITAL COURSE: This patient presented with acute non-ST elevation myocardial infarction. The patient had angioplasty and stenting to the above 2 vessels on 2 separate sittings. On the day of discharge, doing much better up and about. No chest pain or shortness of breath. PHYSICAL EXAMINATION: Temperature 97.8, pulse 70, respirations 16, blood pressure 142/82. Lungs fair entry. Cardiovascular: 1st and 2nd sounds normal. Potassium 4.4. BUN 23, creatinine 1.07. The patient LDL was 48. 2D echocardiogram showed EF of 50-55 percent. CONSULTATIONS: Dr. Kiel Orr from Cardiology, Dr. Zamora from interventional cardiology. DISCHARGE MEDICATIONS: 1. Aspirin 81 mg at bedtime. 2. Lipitor 20 mg q.h.s. 3. 135 mg q.h.s. 4. Losartan hydrochlorothiazide 100/25 1 tablet p.o. daily. 5. Centrum men's tablet 1 tablet p.o. daily. 6. Depo-Testosterone 200 mg IM Q 14 days. 7. Norvasc 5 mg p.o. b.i.d. 8. Tegretol XR 200 mg p.o. daily. 9. Vitamin D3 1000 units p.o. daily. 10.Zetia 10 mg p.o. daily. 11.Coreg 6.25 mg p.o. b.i.d. 12.Nitrostat 0.4 sublingual q.5 p.r.n. 13.Brilinta 90 mg p.o. b.i.d. FOLLOWUP: Follow up with Dr. Zamora on 12/01/2017. Follow up with Dr. Corona on 12/02/2017. Copy to Dr. Corona. MMMISTIL / NIEVESN: [id number] /
== END 2017-11-25 15:50 | disposition home or self-care (01) | DRG 247 ==
LOC: EC 08:10 → 6ICU 08:14 → 6SEL 11-23 16:14
PROVIDERS: ADMIT Hospitalist; ATTEND Hospitalist
PROC: B215YZZ Fluoroscopy of Left Heart using Other Contrast (ICD-10-PCS; 2017-11-22)
PROC: 4A023N7 Measurement of Cardiac Sampling and Pressure, Left Heart, Percutaneous Approach (ICD-10-PCS; 2017-11-22)
PROC: B211YZZ Fluoroscopy of Multiple Coronary Arteries using Other Contrast (ICD-10-PCS; 2017-11-22)
PROC: B215YZZ Fluoroscopy of Left Heart using Other Contrast (ICD-10-PCS; 2017-11-22)
PROC: B211YZZ Fluoroscopy of Multiple Coronary Arteries using Other Contrast (ICD-10-PCS; 2017-11-22)
PROC: 027034Z Dilation of Coronary Artery, One Artery with Drug-eluting Intraluminal Device, Percutaneous Approach (ICD-10-PCS; principal; 2017-11-22 08:40)
PROC: 027035Z Dilation of Coronary Artery, One Artery with Two Drug-eluting Intraluminal Devices, Percutaneous Approach (ICD-10-PCS; 2017-11-24)
DX: I21.19 ST elevation (STEMI) myocardial infarction involving other coronary artery of inferior wall (principal); E78.5 Hyperlipidemia, unspecified; G47.33 Obstructive sleep apnea (adult) (pediatric); K21.9 Gastro-esophageal reflux disease without esophagitis; I10 Essential (primary) hypertension; G40.909 Epilepsy, unspecified, not intractable, without status epilepticus; I25.10 Atherosclerotic heart disease of native coronary artery without angina pectoris; M17.0 Bilateral primary osteoarthritis of knee; Z87.442 Personal history of urinary calculi; Z79.82 Long term (current) use of aspirin; Z79.899 Other long term (current) drug therapy; Z86.73 Personal history of transient ischemic attack (TIA), and cerebral infarction without residual deficits; Z87.81 Personal history of (healed) traumatic fracture; Z87.891 Personal history of nicotine dependence; Z82.3 Family history of stroke; Z80.9 Family history of malignant neoplasm, unspecified
CPT/HCPCS: 36415; 71045; 80048; 80053; 80061; 82550; 82553; 83735; 83880; 84484; 85025; 85049; 85610; 85730; 93306; 93458; 96372; 99291; C1874

== ENCOUNTER 2018-06-04 18:51 | Emergency (ER) | payer MEDICARE, BC ==
--- NOTE | 2018-06-04 19:29 | ED ---
General Adult HPI - General Chief complaint: Fever Stated complaint: Cold Symptoms, Heart Problems Time Seen by Provider: 06/04/18 19:15 Source: patient Mode of arrival: ambulatory Limitations: no limitations - History of Present Illness Initial comments: 67-year-old male presents with upper history symptoms since yesterday. Patient cough congestion and low-grade fevers. Patient feeling fatigued and achy. Patient concerned because he gets heaviness on his chest since the cough started. Patient had open heart surgery last year with 4 stents placed. Patient states he was recently put on a water pill [address] 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 Patient is not short of breath has had some wheezing. Patient is mainly a dry cough bringing up phlegm at times. -: days(s) (1) Location: chest Radiation: non-radiation Improves with: none Worsens with: none, movement Associated Symptoms: chest pain, cough, headaches Treatments Prior to Arrival: none - Related Data Home Medications Medication Instructions Recorded Confirmed Aspirin [Adult Low Dose Aspirin EC] 81 mg PO HS 12/20/14 01/06/18 Atorvastatin [Lipitor] 40 mg PO HS 12/20/14 01/06/18 Losartan/Hydrochlorothiazide 1 tab PO DAILY 12/20/14 01/06/18 [Losartan-Hctz 100-25 mg Tab] Multivit-Mins/Iron/Folic/Lycop 1 tab PO DAILY 12/20/14 01/06/18 [Centrum Men's Tablet] carBAMazepine [TEGretol XR] 200 mg PO DAILY 12/20/14 01/06/18 Cholecalciferol [Vitamin D3] 2,000 unit PO DAILY 11/22/17 01/06/18 Ezetimibe [Zetia] 10 mg PO DAILY 11/22/17 01/06/18 Previous Rx's Medication Instructions Recorded Nitroglycerin Sl Tabs [Nitrostat] 0.4 mg SUBLINGUAL Q5M PRN #25 tab 11/25/17 Azithromycin [Zithromax] 500 mg PO DAILY #3 tab 01/10/18 Carvedilol [Coreg*] 12.5 mg PO BID-W/MEALS #60 tab 01/10/18 Clopidogrel [Plavix] 75 mg PO DAILY #30 tab 01/10/18 Rivaroxaban [Xarelto] 15 mg PO W/SUPPER #30 tab 01/10/18 amLODIPine [Norvasc] 5 mg PO HS #0 01/10/18 Azithromycin [Zithromax Z-pack] 250 mg PO DIRECTED #6 tab 06/04/18 Oseltamivir [Tamiflu] 75 mg PO Q12HR #10 cap 06/04/18 Allergies Allergy/AdvReac Type Severity Reaction Status Date / Time No Known Allergies Allergy Verified 06/04/18 19:07 Review of Systems ROS Statement: Those systems with pertinent positive or pertinent negative responses have been documented in the HPI. ROS Other: All systems not noted in ROS Statement are negative. Constitutional: Denies: fever ENT: Denies: ear pain Respiratory: Reports: cough, wheezes. Denies: dyspnea Cardiovascular: Reports: chest pain (heavy) Gastrointestinal: Denies: abdominal pain, nausea, vomiting Skin: Denies: rash Past Medical History Past Medical History: CVA/TIA, GERD/Reflux, Hyperlipidemia, Hypertension, Myocardial Infarction (GA), Osteoarthritis (OA), Sleep Apnea/CPAP/BIPAP Additional Past Medical History / Comment(s): 12/20/14 Pt is a direct admit for infected L elbow. Pt notices swelling and pain and redness in L elbow starting about 3 weeks ago. He has completed 2 different p.o. ABX. Other HX: Recent stress test, U/S of caratids and echo all normal, 1998 TIA, MAX with CPAP use, nephrolithiasis and has 2 kidney stones still in kidney x 10 yrs, crush injury yrs ago involving 2 vertebrae low back and L ankle, L leg larger due to injury, low testosterone, 2008 L rib fxs, cervical pain in past with numbness and tingling bilateral arms-much better after surgery, L/R knee arthritic pain, occasional cough, Last Myocardial Infarction Date:: 11/22/17 History of Any Multi-Drug Resistant Organisms: None Reported Past Surgical History: Back Surgery, Heart Catheterization With Stent, Orth opedic Surgery, Tonsillectomy Additional Past Surgical History / Comment(s): 2008 repair L thoracic hernia (between ribs) with rib bx-benign, cervical injections 6 cervical fusions done in 2 separate cervical surgeries, 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 Past Anesthesia/Blood Transfusion Reactions: Postoperative Nausea & Vomiting (PONV) Date of Last Stent Placement:: 11/22/17 Past Psychological History: No Psychological Hx Reported Smoking Status: Former smoker Past Alcohol Use History: Occasional Past Drug Use History: None Reported - Past Family History Father Family Medical History: CVA/TIA Additional Family Medical History / Comment(s): Father of CVA at age 80 yrs. Mother Family Medical History: Cancer Additional Family Medical History / Comment(s): Mother had multiple types of cancers. She at age 92 yrs. General Exam Limitations: no limitations General appearance: alert, in no apparent distress Eye exam: Present: normal appearance, PERRL, EOMI. Absent: scleral icterus, conjunctival injection, periorbital swelling ENT exam: Present: normal exam, mucous membranes moist Neck exam: Present: normal inspection. Absent: tenderness, meningismus, lymphadenopathy Respiratory exam: Present: normal lung sounds bilaterally. Absent: respiratory distress, wheezes, rales, rhonchi, stridor Cardiovascular Exam: Present: regular rate, normal rhythm, normal heart sounds. Absent: systolic murmur, diastolic murmur, rubs, gallop, clicks Neurological exam: Present: alert, oriented X3, CN II-XII intact Psychiatric exam: Present: normal affect, normal mood Skin exam: Present: warm, dry, intact, normal color. Absent: rash Course Vital Signs 06/04/18 19:05 Temperature 99.4 F Pulse Rate 90 Respiratory 18 Rate Blood Pressure 154/77 O2 Sat by Pulse 98 Oximetry Medical Decision Making - Medical Decision Making Patient is a positive for influenza A will treat with Tamiflu. reviewd gfr slgtly low. Questionable atelectasis versus infiltrate versus scarring on the left lower lobe patient did have a surgery on that side and rib removed. We wi ll cover with an antibiotic as well. Patient to be rechecked in a few days on an outpatient basis or return to ER symptoms progress or worsen all other labs were normal. - Lab Data Result diagrams: 06/04/18 19:20 06/04/18 19:20 Lab Results 06/04/18 06/04/18 06/04/18 Range/Units 19:20 19:20 19:20 WBC 6.6 (3.8-10.6) k/uL RBC 5.85 (4.30-5.90) m/uL Hgb 17.6 H (13.0-17.5) gm/dL Hct 51.0 (39.0-53.0) % MCV 87.2 (80.0-100.0) fL MCH 30.0 (25.0-35.0) pg MCHC 34.4 (31.0-37.0) g/dL RDW 15.0 (11.5-15.5) % Plt Count 204 (150-450) k/uL Neutrophils % 76 % Lymphocytes % 8 % Monocytes % 11 % Eosinophils % 3 % Basophils % 1 % Neutrophils # 5.0 (1.3-7.7) k/uL Lymphocytes # 0.6 L (1.0-4.8) k/uL Monocytes # 0.7 (0-1.0) k/uL Eosinophils # 0.2 (0-0.7) k/uL Basophils # 0.0 (0-0.2) k/uL Sodium (137-145) mmol/L Potassium (3.5-5.1) mmol/L Chloride (98-107) mmol/L Carbon Dioxide (22-30) mmol/L Anion Gap mmol/L BUN (9-20) mg/dL Creatinine (0.66-1.25) mg/dL Est GFR (CKD-EPI)AfAm (>60 ml/min/1.73 sqM) Est GFR (CKD-EPI)NonAf (>60 ml/min/1.73 sqM) Glucose (74-99) mg/dL Plasma Lactic Acid Jalil (0.7-2.0) mmol/L Calcium (8.4-10.2) mg/dL Magnesium (1.6-2.3) mg/dL Total Bilirubin (0.2-1.3) mg/dL AST (17-59) U/L ALT (21-72) U/L Alkaline Phosphatase (38-126) U/L Total Creatine Kinase 143 (55-170) U/L CK-MB (CK-2) 2.0 (0.0-2.4) ng/mL CK-MB (CK-2) Rel Index 1.4 Troponin I <0.012 (0.000-0.034) ng/mL Total Protein (6.3-8.2) g/dL Albumin (3.5-5.0) g/dL Influenza Type A RNA Detected H (Not Detectd) Influenza Type B (PCR) Not Detected (Not Detectd) 06/04/18 06/04/18 Range/Units 19:20 19:52 WBC (3.8-10.6) k/uL RBC (4.30-5.90) m/uL Hgb (13.0-17.5) gm/dL Hct (39.0-53.0) % MCV (80.0-100.0) fL MCH (25.0-35.0) pg MCHC (31.0-37.0) g/dL RDW (11.5-15.5) % Plt Count (150-450) k/uL Neutrophils % % Lymphocytes % % Monocytes % % Eosinophils % % Basophils % % Neutrophils # (1.3-7.7) k/uL Lymphocytes # (1.0-4.8) k/uL Monocytes # (0-1.0) k/uL Eosinophils # (0-0.7) k/uL Basophils # (0-0.2) k/uL Sodium 139 (137-145) mmol/L Potassium 4.1 (3.5-5.1) mmol/L Chloride 98 (98-107) mmol/L Carbon Dioxide 30 (22-30) mmol/L Anion Gap 11 mmol/L BUN 31 H (9-20) mg/dL Creatinine 1.51 H (0.66-1.25) mg/dL Est GFR (CKD-EPI)AfAm 54 (>60 ml/min/1.73 sqM) Est GFR (CKD-EPI)NonAf 47 (>60 ml/min/1.73 sqM) Glucose 93 (74-99) mg/dL Plasma Lactic Acid Jalil 1.2 (0.7-2.0) mmol/L Calcium 10.0 (8.4-10.2) mg/dL Magnesium 1.6 (1.6-2.3) mg/dL Total Bilirubin 0.5 (0.2-1.3) mg/dL AST 31 (17-59) U/L ALT 42 (21-72) U/L Alkaline Phosphatase 66 (38-126) U/L Total Creatine Kinase (55-170) U/L CK-MB (CK-2) (0.0-2.4) ng/mL CK-MB (CK-2) Rel Index Troponin I (0.000-0.034) ng/mL Total Protein 6.9 (6.3-8.2) g/dL Albumin 4.3 (3.5-5.0) g/dL Influenza Type A RNA (Not Detectd) Influenza Type B (PCR) (Not Detectd) Disposition Clinical Impression: Influenza, Community acquired pneumonia Disposition: HOME SELF-CARE Condition: Good Instructions (If sedation given, give patient instructions): Fever in Adults (ED), Influenza (ED), Viral Pneumonia (ED) Prescriptions: Oseltamivir [Tamiflu] 75 mg PO Q12HR #10 cap Azithromycin [Zithromax Z-pack] 250 mg PO DIRECTED #6 tab Is patient prescribed a controlled substance at d/c from ED?: No Referrals: Palmer Corona DO [Primary Care Provider] - 1-2 days Time of Disposition: 21:10
[2018-06-04 19:49] LABS: Basophils % (A) 1 %; Eosinophils # (A) 0.2 k/uL (0-0.7); Eosinophils % (A) 3 %; HGB 17.6 gm/dL (13.0-17.5); Lymphocytes # (A) 0.6 k/uL (1.0-4.8); Lymphocytes % (A) 8 %; MCHC 34.4 g/dL (31.0-37.0); MCV 87.2 fL (80.0-100.0); Mean Platelet Volume 7.8; Monocytes # (A) 0.7 k/uL (0-1.0); Monocytes % (A) 11 %; Neutrophils % (A) 76 %; Platelet Count 204 k/uL (150-450); RBC 5.85 m/uL (4.30-5.90); WBC 6.6 k/uL (3.8-10.6)
[2018-06-04 20:04] LABS: Albumin 4.3 g/dL (3.5-5.0); Magnesium 1.6 mg/dL (1.6-2.3); Potassium 4.1 mmol/L (3.5-5.1); Total Bilirubin 0.5 mg/dL (0.2-1.3); Total Protein 6.9 g/dL (6.3-8.2)
[2018-06-04 20:07] LABS: Creatine Kinase 143 U/L (55-170)
[2018-06-04 20:20] LABS: Troponin I <0.012 ng/mL (0.000-0.034)
[2018-06-04] MEDS ORDERED: OSELTAMIVIR 75 MG CAP PO STA (20:49)
--- NOTE | 2018-06-04 20:54 | XR ---
EXAMINATION TYPE: XR chest 2V DATE OF EXAM: 06/04/2018 COMPARISON: 01/08/2018, 11/22/2017 INDICATION: Pain cough short of breath fever TECHNIQUE: Frontal and lateral views of the chest are obtained. FINDINGS: The heart size is normal. The pulmonary vasculature is normal. Some mild infiltrate is along the left diaphragm and left costophrenic angle. This is an improvement. Portion of this may be chronic.. IMPRESSION: 1. Minimal infiltrate at the left base and costophrenic angle. Correlate for atelectasis versus scarr ing. Mild pneumonia is not excluded. Follow-up studies can be performed as clinically indicated.
[2018-06-04 21:18] VITALS: BP 143/89; PULSE 80; RESP 15; TEMP 100.8
== END 2018-06-04 21:16 | disposition home or self-care (01) ==
LOC: EC 18:51
DX: J10.00 Influenza due to other identified influenza virus with unspecified type of pneumonia (principal); E78.5 Hyperlipidemia, unspecified; I10 Essential (primary) hypertension; I25.2 Old myocardial infarction; G47.33 Obstructive sleep apnea (adult) (pediatric); Z79.82 Long term (current) use of aspirin; Z79.899 Other long term (current) drug therapy; Z86.73 Personal history of transient ischemic attack (TIA), and cerebral infarction without residual deficits; Z95.1 Presence of aortocoronary bypass graft; Z87.891 Personal history of nicotine dependence
CPT/HCPCS: 36415; 71046; 80053; 82550; 82553; 83605; 83735; 84484; 85025; 87502; 93005; 99283

== ENCOUNTER → 2020-09-09 | Outpatient (CLI) | payer MEDICARE ==
--- NOTE | 2020-09-09 14:20 | US ---
EXAMINATION TYPE: US venous doppler duplex LE LT DATE OF EXAM: 09/09/2020 1:15 PM COMPARISON: NONE CLINICAL HISTORY: M79.89 Swelling of limp. Swelling, on blood thinners SIDE PERFORMED: Left TECHNIQUE: The lower extremity deep venous system is examined utilizing real time linear array sonog vipin with graded compression, doppler sonography and color-flow sonography. VESSELS IMAGED: Common Femoral Vein Deep Femoral Vein Greater Saphenous Vein * Femoral Vein Popliteal Vein Proximal Calf Veins (* superficial vessels) Left Leg: Negative for DVT IMPRESSION: No sonographic evidence for left lower extremity deep vein thrombosis.
== END | disposition home or self-care (01) ==
LOC: RADUSWWP 13:00
PROVIDERS: ATTEND Internal Medicine Hematology & Oncology
DX: M79.89 Other specified soft tissue disorders (principal)

== ENCOUNTER → 2021-01-08 | Outpatient (CLI) | payer MEDICARE ==
[2021-01-08 09:09] VITALS: BP 182/93; PULSE 58; RESP 18; TEMP 97.7
--- NOTE | 2021-01-08 12:41 | P.PAINCN ---
History of Present Illness - Reason for Consult Consult date: 01/08/21 - History of Present Illness Errol is a 70-year-old male presented to clinic today for initial evaluation of pain management. He is referred to our clinic by his primary care provider Dr. Corona. His neurosurgeon is Dr. Wilcox he has a history of cervical spondylosis and facet arthropathy without myelopathy, cervical radiculopathy, status post cervical fusion, lumbar spondylosis and facet arthropathy without myelopathy, lumbar radiculopathy, status post lumbar fusion. She presents today for continuing low back pain since March of this year. He had a spinal fusion at that time and has not had significant pain relief with that procedure. He describes it as a dull ache and soreness in his lower back. This pain is made worse with increased activity, excessive standing, and long walking. Patient is doing better with rest. He's had several rounds of physical therapy. The past. He continues to do at home exercises 4-5 days a week which includes walking in the pool at the [facility]. He does not see any healthcare prof. On average his pain is 5 or 6 out of 10 on a 0-to-10 scale. With increased activity he rates his pain as 8 or 9 out of 10 on a 0-to-10 scale. He denies any bowel or bladder dysfunction, saddle anesthesia, and any other red flag symptoms. He had no other questions or concerns at this time. Past Medical History Past Medical History: CVA/TIA, GERD/Reflux, Hyperlipidemia, Hypertension, Myocardial Infarction (DC), Osteoarthritis (OA), Sleep Apnea/CPAP/BIPAP Additional Past Medical History / Comment(s): TIA's-most recent about a year ago-no residual effects, MAX with CPAP use, nephrolithiasis and has 2 kidney stones still in kidney x 10 yrs, crush injury yrs ago involving 2 vertebrae low back and L ankle, L leg larger due to injury, low testosterone, 2008 L rib fxs, still has small open "hole" left side where had surgery & had rib removed, low back pain Last Myocardial Infarction Date:: 11/22/17 History of Any Multi-Drug Resistant Organisms: None Reported Past Surgical History: Back Surgery, Heart Catheterization With Stent, O rthopedic Surgery, Tonsillectomy Additional Past Surgical History / Comment(s): 2008 repair L thoracic hernia (between ribs) with rib bx-benign, 6 cervical fusions done in 2 separate cervical surgeries, nasal tumor removal as child, L thumb sx x 2, R knee arthroscopy, L ankle sx for crush injury, colonoscopies, L/R carpal tunnel release. multi-level lumbar fusion 2020 Past Anesthesia/Blood Transfusion Reactions: Postoperative Nausea & Vomiting (PONV) Additional Past Anesthesia/Blood Transfusion Reaction / Comm: PONV x1 only Date of Last Stent Placement:: 11/22/17 Past Psychological History: No Psychological Hx Reported Additional Psychological History / Comment(s): Pt resides alone. He is independent. He uses no device. He drives. He normally works out daily. 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 He was in the , the [employer] when he was [age]. the only time he smoked was at that time. He denies recreational drug use. No significant difficulties with alcohol. He has no international travels. No animal exposures. Smoking Status: Former smoker Past Alcohol Use History: Occasional Additional Past Alcohol Use History / Comment(s): Pt quiet smoking in 1973 and smoked for about 5-6 yrs. Past Drug Use History: None Reported - Past Family History Father Family Medical History: CVA/TIA Additional Family Medical History / Comment(s): Father of CVA at age 80 yrs. Mother Family Medical History: Cancer Additional Family Medical History / Comment(s): Mother had multiple types of cancers. She at age 92 yrs. Medications and Allergies Home Medications Medication Instructions Recorded Confirmed Type Aspirin [Adult Low Dose Aspirin EC] 81 mg PO DAILY 12/20/14 01/08/21 History Atorvastatin [Lipitor] 40 mg PO HS 12/20/14 01/08/21 History Losartan/Hydrochlorothiazide 1 tab PO DAILY 12/20/14 01/08/21 History [Losartan-Hctz 100-25 mg Tab] Multivit-Mins/Iron/Folic/Lycop 1 tab PO DAILY 12/20/14 01/08/21 History [Centrum Men's Tablet] carBAMazepine [TEGretol XR] 200 mg PO DAILY 12/20/14 01/08/21 History Cholecalciferol [Vitamin D3 (25 2,000 unit PO DAILY 11/22/17 01/08/21 History Mcg = 1000 Iu)] Ezetimibe [Zetia] 10 mg PO DAILY 11/22/17 01/08/21 History Nitroglycerin Sl Tabs [Nitrostat] 0.4 mg SUBLINGUAL Q5M PRN #25 tab 11/25/17 01/08/21 Rx carvediloL [Coreg*] 12.5 mg PO BID-W/MEALS #60 tab 01/10/18 01/08/21 Rx Acetaminophen [Tylenol Extra 1,000 mg PO BID 01/02/21 01/08/21 History Strength] Cetirizine HCl [Zyrtec] 10 mg PO DAILY PRN 01/02/21 01/08/21 History Cyanocobalamin (Vitamin B-12) 1,000 mcg PO DAILY 01/02/21 01/08/21 History [Vitamin B-12] Furosemide [Lasix] 20 mg PO DAILY PRN 01/02/21 01/08/21 History Rivaroxaban [Xarelto] 20 mg PO W/SUPPER 01/02/21 01/08/21 History Testosterone Cypionate 20 mg IM Q14D 01/02/21 01/08/21 History [Depo-Testosterone] Ubidecarenone [Co Q-10] 100 mg PO DAILY 01/02/21 01/08/21 History amLODIPine [Norvasc] 5 mg PO BID 01/02/21 01/08/21 History Allergies Allergy/AdvReac Type Severity Reaction Status Date / Time codeine AdvReac Nausea Verified 01/08/21 08:48 Physical Exam REVIEW OF ORGAN SYSTEMS: CONSTITUTIONAL: No fevers or chills. No recent weight loss. EYES: denies troubles with vision. HEENT: No difficulties with hearing. No nosebleeds. No difficulty swallowing. RESPIRATORY: Denies any troubles with breathing or dyspnea on exertion. CARDIOVASCULAR: Denies any chest pain, palpitations, or recent heart attacks. GASTROINTESTINAL: Denies fatty food intolerance. Has change in bowel habits and gas bloat. GENITOURINARY: Denies any blood in urine. Has increased urinary frequency. NEUROLOGICAL: + numbness and tingling along the distal extremities. No seizure disorders or headaches. MUSCULOSKELETAL: Has back pain. SKIN:no skin cancer. No rash. PSYCHIATRIC: Denies current depression or suicidal thoughts. ENDOCRINE: Denies current thyroid disorders. Denies any blood sugar glucose intolerance. HEME/LYMPHATIC: Denies any lumps and bumps around the neck. History of deep venous thrombosis. ALLERGY/IMMUNOLOGY: No immunoglobulin therapy. No immune deficiencies. BREAST: Denies current breast lumps, pain or nipple discharge. Physical Examinations : Constitutiona : Cooperative , not in acute distress . HEENT : nech : supple , no Lymphadenopathy , normal thyroid size . : eyes no ptosis , no icterus, no photophobia . : ENT normal of hearing , normal oropharynx , no Thrush . Respiratory : Chest clear to auscultations Bilaterally , no wheezing , no Rhonchi . Cardiovascula : regular rate and rhythem , S1 , S2 , no S3 , no S4. Gastrointestina : abdomen soft no tenderness , bowel sounds , no organomegally . Genitourinary : Defferred . neurologic : Cranial nerve II to XII intact , no focal neurological deffecit . psychatric : alert , oriented X 3 , appropriate affect , intact judgment and insight . Lymphatic : no Lymphadenopathy . musculoskeltal : Cervical Spine motor stregnth in the deltoid and biceps, normal right side , normal Left side motor stregnth biceps and the wrist extensors normal right side ,normal left side . motor stregnth in the triceps muscle . normal Right side , normal Left side deep tendon reflexes= normal at the biceps , normal at Brachioradialis , normal at triceps. cervical facet loading test: Positive Bilaterally Spurling test= positive bilaterally. Neck distraction test= positive bilaterally. Elzbieta sign= negative. Lumber spine moter stegnth lower extremities ,thigh and legs 5/5 Right side , 5/5 Left side deep tendon reflexes : normal Knee Jerk , normal ankle Jerk lumber facet Loading Test= positive Right , positive Left Range of motion of the lumbar spine Flexion 30 degrees, extension 10 degrees strait leg raising test , positive at 20 degree Fabere test= positive Right , and positive left . Sever tenderness over the Sacroiliac joint on the Right , and Left sides Gaenslen test= positive bilaterally. Seated flexion test= positive bilaterally. Assessment and Plan Assessment: Assessment and plan Assessment: Cervical spondylosis and facet arthropathy without myelopathy Clinical radiculopathy Status post cervical fusion Lumbar spondylosis and facet arthropathy without myelopathy Lumbar radiculopathy Status post lumbar fusion Bilateral SI joint dysfunction Plan: Schedule patient for bilateral SI joint injection #1 of up to 3 Follow-up appointment for evaluation and procedures effectiveness Dr. Castro was available by phone for consultation during his visit. I have spent 50 minutes on patient care today. The time was used to review the medical records including relevant urine studies and Prescription history (M APs), review of the available imaging, evaluation and examination of the patient, coordination of care with the medical staff and if applicable referring physicians, as well as creation of the medical record. - PQRS measures = - Patient's medications are documented in the chart. -Tobacco use is negative -Patient's has not received pneumococcal vaccine. -Advanced care planning discussed, patient not eligible. -Opiate contract signed. -Pain positive and follow-up visit/procedure is scheduled. -Patient's blood pressure measured 182/93, and documented in the record ,and patient will follow up with the primary care. -Patient was not identified as an unhealthy alcohol user Time with Patient: Greater than 30 PQRS Measure Charge Sheet - Pain Location Lower Back Non-Pharmacological Interventions: Home Exercise, Stretching Pharmacological Interventions: PRN Medication PQRS Narrative: Smoking Status Former smoker Pain Intensity [Lower Back] 6 Scale Used Numeric (1 - 10) Home Medications: Ambulatory Orders Aspirin [Adult Low Dose Aspirin EC] 81 mg PO DAILY 12/20/14 Atorvastatin [Lipitor] 40 mg PO HS 12/20/14 Losartan/Hydrochlorothiazide [Losartan-Hctz 100-25 mg Tab] 1 tab PO DAILY 12/20/14 Multivit-Mins/Iron/Folic/Lycop [Centrum Men's Tablet] 1 tab PO DAILY 12/20/14 carBAMazepine [TEGretol XR] 200 mg PO DAILY 12/20/14 Cholecalciferol [Vitamin D3 (25 Mcg = 1000 Iu)] 2,000 unit PO DAILY 11/22/17 Ezetimibe [Zetia] 10 mg PO DAILY 11/22/17 Nitroglycerin Sl Tabs [Nitrostat] 0.4 mg SUBLINGUAL Q5M PRN #25 tab 11/25/17 carvediloL [Coreg*] 12.5 mg PO BID-W/MEALS #60 tab 01/10/18 Acetaminophen [Tylenol Extra Strength] 1,000 mg PO BID 01/02/21 Cetirizine HCl [Zyrtec] 10 mg PO DAILY PRN 01/02/21 Cyanocobalamin (Vitamin B-12) [Vitamin B-12] 1,000 mcg PO DAILY 01/02/21 Furosemide [Lasix] 20 mg PO DAILY PRN 01/02/21 Rivaroxaban [Xarelto] 20 mg PO W/SUPPER 01/02/21 Testosterone Cypionate [Depo-Testosterone] 20 mg IM Q14D 01/02/21 Ubidecarenone [Co Q-10] 100 mg PO DAILY 01/02/21 amLODIPine [Norvasc] 5 mg PO BID 01/02/21
== END ==
LOC: PNWHC3 08:39
PROVIDERS: ATTEND Student in an Organized Health Care Education/Training Program
DX: M47.22 Other spondylosis with radiculopathy, cervical region (principal); M47.26 Other spondylosis with radiculopathy, lumbar region; M53.3 Sacrococcygeal disorders, not elsewhere classified; Z98.1 Arthrodesis status; E78.5 Hyperlipidemia, unspecified; I10 Essential (primary) hypertension; I25.2 Old myocardial infarction; M19.90 Unspecified osteoarthritis, unspecified site; Z86.73 Personal history of transient ischemic attack (TIA), and cerebral infarction without residual deficits; Z87.891 Personal history of nicotine dependence; Z79.82 Long term (current) use of aspirin; Z79.899 Other long term (current) drug therapy; Z88.5 Allergy status to narcotic agent
CPT/HCPCS: 99211

== ENCOUNTER 2021-02-06 10:23 | Day surgery (SDC) | payer MEDICARE ==
[2021-02-04 15:34] VITALS: BMI 31.0
[2021-02-06] MEDS ORDERED: LACTATED RINGERS 1,000 ML IV SCH (10:43)
[2021-02-06 10:57] VITALS: RESP 16; TEMP 98.2
[2021-02-06] MEDS ORDERED: LIDOCAINE 1% (10MG/ML) FOR IV START INTRADERMA ONE (11:00)
[2021-02-06] MEDS ORDERED: .fentaNYL (PF) 50 MCG/ML 2 ML AMP ONE (11:03)
[2021-02-06] MEDS ORDERED: MIDAZOLAM 2 MG/2 ML VIAL ONE (11:03)
[2021-02-06] MEDS ORDERED: methylPREDNISolone ACETATE 40 MG/ML 1 ML VIAL ONE (11:03)
[2021-02-06] MEDS ORDERED: ROPIVACAINE 5MG/ML 20ML VIAL ONE (11:03)
--- NOTE | 2021-02-06 11:21 | P.PCN ---
Date of Procedure: 02/06/21 Procedure(s) Performed: Procedure= bilateral sacroiliac joints steroid injection under fluoroscopy guidance (fluoroscopy image stored on file in the radiology Department ) Preoperative diagnosis= 1-bilateral sacroiliitis 2-bilateral sacroiliac joint dysfunction Postoperative diagnosis=Same as preop Diagnosis . Complication = none Condition= stable Anesthesia= moderate sedation with intravenous Versed 2 mg , and fentanyl 100 micrograms . Indication for the procedure= patient complaining of low back pain , examination was positive for severe tenderness over the sacroiliac joints bilaterally and patient diagnosed with sacroiliitis, for this reason he was good candidate for sacroiliac joint steroid injection. Description of the procedure= procedure risk and benefits discussed with the patient, including but not limited, risk of infection and bleeding, and ALLERGIC reaction to the medication and not complete pain relief and patient agreed with the preceding patient taken to the operating room, placed in prone position or standard monitors applied to the patient then after induction of anesthesia back prepped with chlorhexidine 3 times , Then under strict sterile technique, first I did the right sacroiliac joint the which was identified under fluoroscopy guidance been local infiltration of the skin and subcu interstitial with lidocaine 1% then 22-gauge Quincke Needle advanced slowly under fluoroscopy and placed in the right sacroiliac joint needle placement confirmed with AP and oblique and lateral view and after appropriate needle placement confirmed and after negative aspiration, or heme , then Ropivacaine 0.5% 4 mL, and 20 mg of Depo-Medrol mixed together and injected in the right sacroiliac joint after negative aspiration patient tolerated the procedure well without any complication. Then the left sacroiliac joint steroid injection done under strict monitoring tech nique local infiltration of the skin and subcu interstitial at the location of the left sacroiliac joint then a 22-gauge Quincke Needle advanced slowly under fluoroscopy time placed in the left sacroiliac joint, needle placement confirmed with AP and oblique and lateral view then after appropriate needle placement confirmed and after negative aspiration 0.5% Ropivacaine 4 mL and 20 mg of Depo-Medrol injected in the left sacroiliac joint after negative aspiration patient tolerated the procedure well that any complications and she will follow up in clinic 3 weeks
[2021-02-06] MEDS ORDERED: IV FLUID CONTINUATION 1,000 ML IV ONE ×2 (11:24)
--- NOTE | 2021-02-06 11:35 | FL ---
EXAMINATION TYPE: FL guided pain mgmt statistic DATE OF EXAM: 02/06/2021 HISTORY: Fluoroscopy time 33 seconds of fluoroscopy provided. IMPRESSION: 1. Fluoroscopy time.
[2021-02-06 11:44] VITALS: BP 148/87; PULSE 71
== END 2021-02-06 12:00 | disposition home or self-care (01) ==
LOC: ORPAIN 10:23
PROVIDERS: ATTEND Specialist
DX: M46.1 Sacroiliitis, not elsewhere classified (principal); M53.3 Sacrococcygeal disorders, not elsewhere classified; Z88.5 Allergy status to narcotic agent
CPT/HCPCS: J2250; J1030; J3010; J2795; G0260; 99152

== ENCOUNTER → 2021-03-03 | Outpatient (CLI) | payer MEDICARE ==
[2021-03-03 12:44] VITALS: BP 183/88; PULSE 65; RESP 18; TEMP 97.5
--- NOTE | 2021-03-03 20:08 | P.PN ---
Subjective Progress Note Date: 03/03/21 Principal diagnosis: This is follow-up visit for this patient, a 70 yr old male with a history of severe and chronic low back pain secondary to lumbar spondylosis, radiculopathy and facet arthropathy without myelopathy. Admits he suffered a trauma at the age of 15 and has been dealing with pain ever since. Pain is dull & achy in the lower lumbar spine but sharp/ shooting towards the left anterior thigh. Pain intensity is on average a 6 / 10 in intensity, dull and achy in character in the lower back towards his pelvis. Pain is provoked by sedentary lifestyle. Pain is alleviated with medications, injections, home based exercise regimen, rest. Pt admits he walks at the [place] pool approximately 3 times per week, but his pain has returned which has limited his activity over the last several months. Interventional procedures completed include BL SI joint injection on 02/06/2021 with 40% relief and a Lumbar Cage on 03/12/2020. Patient denies any side effects of the medication(s), denies excessive drowsiness or sleepiness, denies suicidal ideation and reports that the current pain medication is helping to control the pain and improve activities of daily living. Patient denies any motor or sensory deficits. Patient denies any fever or night sweats, denies any change in the bowel movements or urination. Physical Examination: -Constitutional: Cooperative. Not in acute distress . -HEENT: Neck is supple. No lymphadenopathy. No thyromegaly. Normal thyroid size. Eyes: No ptosis , no icterus, no photophobia. ENT: No auditory deficits. Normal oropharynx. No Thrush. - Respiratory: Chest clear to auscultations bilaterally. No wheezing. No rhonchi. - Cardiovascular: Regular rate and rhythm. S1 / S2 , no S3 , no S4. - Gastrointestinal: Abdomen soft no tenderness. Bowel sounds positive in all four quadrants. No organomegaly. - Genitourinary: Deferred. - Neurologic: Cranial nerve II to XII intact. No focal neurological deficits. - Psychatric: Alert & oriented x 3. Matching mood & appropriate affect. Judgment and insight intact. - Lymphatic: No Lymphadenopathy. - Musculoskeletal: Cervical spine: Muscle bulk/ tone/ strength in the bilateral upper extremities normal. Facet loading test cervical area positive. Lumbar spine: Well healed 12" vertical incisional scar over the lumbar spine Motor bulk/ tone/ strength in the lower extremities , thigh and legs is age appropriate Deep tendon reflexes : Normal Knee Jerk. Normal Ankle Jerk . Lumbar Facet Loading Test positive Straight Leg Raise: positive at 30 degrees right side/ left side Carmen test: positive right side / left side Range of motion: Flexion of the lumbar spine <60 degrees Range of motion: Extension of the lumbar spine <20 degrees Severe tenderness over the Sacroiliac joint: right side / left side Assessment and plan: Chronic low back pain secondary to lumbar spondylosis, radiculopathy and facet arthropathy without myelopathy Recommendation of BL SI joint injections Stop use of Aspirin and other anticoagulants 5 days prior to procedure Chronic and current use of high-risk medication (Opioids). The patient was counseled about risk of opioid use, psychological risk associated with opioids and was orally counseled to not overuse , divert or sell medications. Pt is to store medication in a safe location. The patient is counseled against driving while using narcotic medications and also not to use alcohol or any illicit recreational drugs. Patient verbalized understanding that the lack of compliance will result in failure to renew narcotic prescription(s) as well as possible discharge from the clinic Diagnoses, prognosis and treatment options including but not limited to physical therapy, surgical interventions, interventional therapies and medication management including narcotics and adjuvant medication were discussed. All patient questions answered MAPS reviewed and it was appropriate. Prescription refill for I have spent 31 minutes on patient care today. The time was used to review the medical records including relevant urine studies and Prescription history (MAPs), review of the available imaging, evaluation and examination of the patient, coordination of care with the medical staff and if applicable referring physicians, as well as creation of the medical record Objective - Vital Signs Vital signs: Vital Signs Temp 97.5 F L 03/03/21 12:21 Pulse 65 03/03/21 12:21 Resp 18 03/03/21 12:21 BP 183/88 03/03/21 12:21 Pulse Ox PQRS Measure Charge Sheet Mode of Arrival: Ambulatory - Pain Location Lower Back Non-Pharmacological Interventions: Home Exercise, Position/Reposition, Relaxation Technique, Stretching Pharmacological Interventions: Block, PRN Medication PQRS Narrative: Smoking Status Former smoker Blood Pressure 183/88 Pain Intensity [Lower Back] 6 Scale Used Numeric (1 - 10) Hx Alcohol Use (MH) Yes: Occasional Home Medications: Ambulatory Orders Aspirin [Adult Low Dose Aspirin EC] 81 mg PO DAILY 12/20/14 Atorvastatin [Lipitor] 40 mg PO HS 12/20/14 Losartan/Hydrochlorothiazide [Losartan-Hctz 100-25 mg Tab] 1 tab PO DAILY 12/20/14 Multivit-Mins/Iron/Folic/Lycop [Centrum Men's Tablet] 1 tab PO DAILY 12/20/14 carBAMazepine [TEGretol XR] 200 mg PO DAILY 12/20/14 Cholecalciferol [Vitamin D3 (25 Mcg = 1000 Iu)] 2,000 unit PO DAILY 11/22/17 Ezetimibe [Zetia] 10 mg PO DAILY 11/22/17 Nitroglycerin Sl Tabs [Nitrostat] 0.4 mg SUBLINGUAL Q5M PRN #25 tab 11/25/17 carvediloL [Coreg*] 12.5 mg PO BID-W/MEALS #60 tab 01/10/18 Acetaminophen [Tylenol Extra Strength] 1,000 mg PO BID 01/02/21 Cetirizine HCl [Zyrtec] 10 mg PO DAILY PRN 01/02/21 Cyanocobalamin (Vitamin B-12) [Vitamin B-12] 1,000 mcg PO DAILY 01/02/21 Furosemide [Lasix] 20 mg PO DAILY PRN 01/02/21 Rivaroxaban [Xarelto] 20 mg PO W/SUPPER 01/02/21 Testosterone Cypionate [Depo-Testosterone] 20 mg IM Q14D 01/02/21 Ubidecarenone [Co Q-10] 100 mg PO DAILY 01/02/21 amLODIPine [Norvasc] 5 mg PO BID 01/02/21
== END ==
LOC: PNWHC3 12:16
PROVIDERS: ATTEND Physician Assistant Medical
DX: M47.26 Other spondylosis with radiculopathy, lumbar region (principal); G89.29 Other chronic pain; Z79.891 Long term (current) use of opiate analgesic; Z87.891 Personal history of nicotine dependence; Z88.5 Allergy status to narcotic agent
CPT/HCPCS: 99211

== ENCOUNTER 2021-06-17 06:10 | Day surgery (SDC) | payer MEDICARE ==
[2021-06-16 10:05] VITALS: BMI 30.4
[2021-06-17] MEDS ORDERED: LIDOCAINE 1% (10MG/ML) FOR IV START INTRADERMA PRN (06:21)
[2021-06-17] MEDS ORDERED: LACTATED RINGERS 1,000 ML IV SCH (06:21)
[2021-06-17 06:42] VITALS: RESP 16; TEMP 97.3
[2021-06-17] MEDS ORDERED: fentaNYL (PF) 50 MCG/ML 2 ML AMP ONE (06:52)
[2021-06-17] MEDS ORDERED: ROPIVACAINE 5MG/ML 20ML VIAL ONE (06:52)
[2021-06-17] MEDS ORDERED: MIDAZOLAM 2 MG/2 ML VIAL ONE (06:52)
[2021-06-17] MEDS ORDERED: methylPREDNISolone ACETATE 40 MG/ML 1 ML VIAL ONE (06:52)
--- NOTE | 2021-06-17 07:14 | P.PCN ---
Date of Procedure: 06/17/21 Procedure(s) Performed: Procedure= bilateral sacroiliac joints steroid injection under fluoroscopy guidance (fluoroscopy image stored on file in the radiology Department ) Preoperative diagnosis= 1-bilateral sacroiliitis 2-bilateral sacroiliac joint dysfunction .3- Post laminectomy Pain Syndrome Postoperative diagnosis=Same as preop Diagnosis . Complication = none Condition= stable Anesthesia= moderate sedation with intravenous Versed 2 mg , and fentanyl 100 micrograms . Indication for the procedure= patient complaining of low back pain , examination was positive for severe tenderness over the sacroiliac joints bilaterally and patient diagnosed with sacroiliitis, for this reason he was good candidate for sacroiliac joint steroid injection. Description of the procedure= procedure risk and benefits discussed with the patient, including but not limited, risk of infection and bleeding, and ALLERGIC reaction to the medication and not complete pain relief and patient agreed with the preceding patient taken to the operating room, placed in prone position or standard monitors applied to the patient then after induction of anesthesia back prepped with chlorhexidine 3 times , Then under strict sterile technique, first I did the right sacroiliac joint the which was identified under fluoroscopy guidance been local infiltration of the skin and subcu interstitial with lidocaine 1% then 22-gauge Quincke Needle advanced slowly under fluoroscopy and placed in the right sacroiliac joint needle placement confirmed with AP and oblique and lateral view and after appropriate needle placement confirmed and after negative aspiration, or heme , then Ropivacaine 0.5% 4 mL, and 20 mg of Depo-Medrol mixed together and injected in the right sacroiliac joint after negative aspiration patient tolerated the procedure well without any complication. Then the left sacroiliac joint steroid injection done under strict sterile technique local infiltration of the skin and subcu interstitial at the location of the left sacroiliac joint then a 22-gauge Quincke Needle advanced slowly under fluoroscopy time placed in the left sacroiliac joint, needle placement confirmed with AP and oblique and lateral view then after appropriate needle placement confirmed and after negative aspiration 0.5% Ropivacaine 4 mL and 20 mg of Depo-Medrol injected in the left sacroiliac joint after negative aspiration patient tolerated the procedure well that any complications and she will follow up in clinic 3 weeks
[2021-06-17] MEDS ORDERED: IV FLUID CONTINUATION 1,000 ML IV ONE ×2 (07:18)
[2021-06-17 07:31] VITALS: BP 150/79; PULSE 68
--- NOTE | 2021-06-17 08:13 | FL ---
EXAMINATION TYPE: FL guided pain mgmt statistic DATE OF EXAM: 06/17/2021 CLINICAL HISTORY: Pain management TECHNIQUE: Fluoroscopic-guided bilateral sacroiliac joint injection COMPARISON: Similar procedure dated 02/06/2021 FINDINGS: Fluoroscopic guidance was provided during the procedure. A total of 12 seconds of fluorosc opic time was utilized during the procedure and 3 spot images were acquired. IMPRESSION: As Above.
== END 2021-06-17 07:57 | disposition home or self-care (01) ==
LOC: ORPAIN 06:10
PROVIDERS: ATTEND Specialist
DX: M46.1 Sacroiliitis, not elsewhere classified (principal); M96.1 Postlaminectomy syndrome, not elsewhere classified; Z88.5 Allergy status to narcotic agent
CPT/HCPCS: J2250; J1030; J3010; J2795; G0260; 99152

== ENCOUNTER → 2021-07-31 | Outpatient (CLI) | payer MEDICARE ==
[2021-07-31 08:56] VITALS: BP 163/83; PULSE 63; RESP 18; TEMP 97.7
--- NOTE | 2021-07-31 08:57 | P.PN ---
Subjective Progress Note Date: 07/31/21 Principal diagnosis: A 70 yr old male with a history of severe and chronic low back pain secondary to lumbar degenerative disc diseases and lumbar spondylosis with facet arthropathy presents today for evaluation s/p BL SI joint injection and medication refills. He states he experienced 60% pain relief s/p procedure. Pain level is currently at 5/10 in intensity, sore/dull/achy/ tight in the lower aspects of his lumbar spine/tailbone region, left and right of midline. Pain is provoked by standing for periods of 30 min or more. Pain is alleviated with aquatherapy at the [facility] 1 hr, heat, medications (Tylenol #3, voltaren gel prn), laying supine and rest. Interventional pain procedures completed include BL SI joint x 2 Patient is currently on Tylenol #3 and Voltaren gel prn Patient denies any side effects of the medication(s), denies excessive drowsiness or sleepiness, denies suicidal ideation and reports that the current pain medication is helping to control the pain and improve activities of daily living. Patient denies any motor or sensory deficits. Patient denies any fever or night sweats, denies any change in the bowel movements or urination. Physical Examination: -Constitutional: Cooperative. Not in acute distress . -HEENT: Neck is supple. No lymphadenopathy. No thyromegaly. Normal thyroid size. Eyes: No ptosis , no icterus, no photophobia. ENT: No auditory deficits. Normal oropharynx. No Thrush. - Respiratory: Chest clear to auscultations bilaterally. No wheezing. No rhonchi. - Cardiovascular: Regular rate and rhythm. S1 / S2 , no S3 , no S4. - Gastrointestinal: Abdomen soft no tenderness. Bowel sounds positive in all four quadrants. No organomegaly. - Genitourinary: Deferred. - Neurologic: Cranial nerve II to XII intact. No focal neurological deficits. - Psychatric: Alert & oriented x 3. Matching mood & appropriate affect. Judgment and insight intact. - Lymphatic: No Lymphadenopathy. - Musculoskeletal: Cervical spine: Muscle bulk/ tone/ strength in the bilateral upper extremities normal Vertebral body tenderness to palpation over Facet loading test positive Thoracic spine Muscle bulk / tone/ strength in the bilateral paraspinal muscles normal Vertebral body tender to palpation over Facet loading test positive Lumbar spine: Motor bulk/ tone/ strength lower extremities , thigh and legs : 5/5 Deep tendon reflexes : Normal Knee Jerk. Normal Ankle Jerk . Vertebral body tenderness to palpation over Lumbar Facet Loading Test positive Straight Leg Raise: positive at 30 degrees right side/ left side Gaenslen's Test positive Sacral spine : Severe tenderness over the Sacroiliac joint: right side / left side Range of motion: Flexion of the lumbar spine <60 degrees Range of motion: Extension of the lumbar spine <20 degrees Gaenslen's Test positive Trey's Test positive Carmen test: positive right side < left side Thigh Thrust Test Sacral Thrust Test Assessment and plan: Chronic low back pain secondary to lumbar degenerative disc disease , lumbar spondylosis with facet arthropathy without myelopathy Recommendation of BL SI joint injection. May need a series of injections, up to every 3 mo, for optimal pain relief. Risks, benefits of procedure discussed and pt verbalized understanding. Denies anticoagulant use or medical history of diabetes. MAPS reviewed and it was appropriate. Prescription refill for Voltaren gel apply to [facility] BID prn pain w 1 refill I have spent 31 minutes on patient care today. Dr Castro was available by phone for the evaluation of this patient. The time was used to review the medical records including relevant urine studies and Prescription history (MAPs), review of the available imaging, evaluation and examination of the patient, coordination of care with the medical staff and if applicable referring physicians, as well as creation of the medical record PQRS Measure Charge Sheet Mode of Arrival: Ambulatory PQRS Narrative: Smoking Status Former smoker Blood Pressure 163/83 Pain Intensity [Bilateral 5 Lower Back] Scale Used Numeric (1 - 10) Hx Alcohol Use (MH) Yes: rare Home Medications: Ambulatory Orders Aspirin [Adult Low Dose Aspirin EC] 81 mg PO DAILY 12/20/14 Atorvastatin [Lipitor] 40 mg PO HS 12/20/14 Losartan/Hydrochlorothiazide [Losartan-Hctz 100-25 mg Tab] 1 tab PO DAILY 12/20/14 Multivit-Mins/Iron/Folic/Lycop [Centrum Men's Tablet] 1 tab PO DAILY 12/20/14 carBAMazepine [TEGretol XR] 200 mg PO DAILY 12/20/14 Cholecalciferol [Vitamin D3 (25 Mcg = 1000 Iu)] 2,000 unit PO DAILY 11/22/17 Ezetimibe [Zetia] 10 mg PO DAILY 09/24/18 Nitroglycerin Sl Tabs [Nitrostat] 0.4 mg SUBLINGUAL Q5M PRN #25 tab 11/25/17 carvediloL [Coreg*] 12.5 mg PO BID-W/MEALS #60 tab 01/10/18 Acetaminophen [Tylenol Extra Strength] 1,000 mg PO BID 01/02/21 Cetirizine HCl [Zyrtec] 10 mg PO DAILY PRN 01/02/21 Cyanocobalamin (Vitamin B-12) [Vitamin B-12] 1,000 mcg PO DAILY 01/02/21 Furosemide [Lasix] 20 mg PO DAILY PRN 01/02/21 Rivaroxaban [Xarelto] 20 mg PO W/SUPPER 01/02/21 Testosterone Cypionate [Depo-Testosterone] 200 mg IM Q14D 01/02/21 Ubidecarenone [Co Q-10] 100 mg PO DAILY 01/02/21 amLODIPine [Norvasc] 5 mg PO BID 01/02/21 Diclofenac Sodium Gel [Voltaren Gel] 100 gm TOPICAL BID 06/16/21
== END ==
LOC: PNWHC3 08:14
PROVIDERS: ATTEND Specialist
DX: M51.36 Other intervertebral disc degeneration, lumbar region (principal); M47.816 Spondylosis without myelopathy or radiculopathy, lumbar region; G89.29 Other chronic pain; Z87.891 Personal history of nicotine dependence; Z88.5 Allergy status to narcotic agent
CPT/HCPCS: 99211

== ENCOUNTER 2021-09-02 06:08 | Day surgery (SDC) | payer MEDICARE ==
[2021-08-28 10:40] VITALS: BMI 30.2
[~2021-09-02 06:08] MED LIST: LACTATED RINGERS 1,000 ML IV SCH
[2021-09-02 06:27] VITALS: RESP 16; TEMP 98.8
[2021-09-02] MEDS ORDERED: fentaNYL (PF) 50 MCG/ML 2 ML AMP ONE (07:06)
[2021-09-02] MEDS ORDERED: MIDAZOLAM 2 MG/2 ML VIAL ONE (07:06)
[2021-09-02] MEDS ORDERED: TRIAMCINOLONE ACETONIDE 40 MG/ML 1 ML VIAL ONE (07:06)
[2021-09-02] MEDS ORDERED: ROPIVACAINE 5MG/ML 20ML VIAL ONE (07:06)
--- NOTE | 2021-09-02 07:27 | P.PCN ---
Date of Procedure: 09/02/21 Surgeon: Diya Rosas Pathology: none sent Condition: stable Disposition: PACU Description of Procedure: Preoperative diagnoses=B/L sacroiliac joint dysfunction and sacroiliitis ,PLPS Postoperative diagnoses= same as preoperative diagnosis. Procedure= B/L sacroiliac joint steroid injection under fluoroscopic guidance. Anesthesia= local anesthesia with lidocaine 1% and IV moderate conscious sedation with fentanyl and Versed Estimated blood loss=minimal. Procedure indication= the patient had a history of severe chronic low back pain, diagnosed with sacroiliitis and lumbar sacral facet arthropathy unresponsive to conservative treatment. Procedure description= the patient was seen and identified in the preoperative holding area, risks and benefits and alternative of the procedure and possible complications discussed with the patient, patient signed the consent. an IV was started, and vital signs were monitored and were stable throughout the procedure , patient was placed in the prone position or table and the lumbosacral area was prepped and draped with a sterile fashion, vital signs were closely monitored during the procedure.The sacroiliac joint was identified on the AP view of fluoroscopy then the C-arm was tilted to the contralateral oblique position to superimpose the anterior and posterior joint lines on each other and to have a unified joint line with the target point at the inferior one third of this line. I used 22-gauge 3-1/2 inch Quincke spinal needle for this procedure and after getting into the sacroiliac joint I injected 20 mg of Kenalog +2 MLS of Ropivacaine 0.5%. The opposite side was done in the same manner . Patient tolerated the procedure well without any complication, The patient returned to supine position after the back was cleaned and a Band- Aid applied, the patient transported to recovery room in stable condition and he was monitored for 30 minutes before she was discharged home in stable condition . patient will follow up with the pain clinic in a few weeks. A copy of the needle placement was saved to the C-arm machine.
[2021-09-02] MEDS ORDERED: IV FLUID CONTINUATION 1,000 ML IV ONE (07:29)
[2021-09-02 07:44] VITALS: BP 152/78; PULSE 75
--- NOTE | 2021-09-02 08:18 | FL ---
Fluoroscopy HISTORY: Pain 12 seconds fluoroscopy time supplied to the referring clinician. 2 intraoperative C-arm images docum ent the procedure. See dictated report from anesthesia.
== END 2021-09-02 07:59 | disposition home or self-care (01) ==
LOC: ORPAIN 06:08
PROVIDERS: ATTEND Anesthesiology
DX: M46.1 Sacroiliitis, not elsewhere classified (principal); M47.817 Spondylosis without myelopathy or radiculopathy, lumbosacral region; M51.36 Other intervertebral disc degeneration, lumbar region; G89.29 Other chronic pain; Z88.5 Allergy status to narcotic agent; Z79.82 Long term (current) use of aspirin; Z79.899 Other long term (current) drug therapy; Z79.1 Long term (current) use of non-steroidal anti-inflammatories (NSAID); Z79.01 Long term (current) use of anticoagulants; Z87.891 Personal history of nicotine dependence; Z82.3 Family history of stroke; Z80.9 Family history of malignant neoplasm, unspecified
CPT/HCPCS: J2250; J3301; J2001; J3010; J2795; G0260; 99152

== ENCOUNTER → 2021-09-17 | Outpatient (CLI) | payer MEDICARE ==
--- NOTE | 2021-09-17 12:49 | FL ---
ESOPHOGRAM. HISTORY: Dysphagia Esophagram was performed per the air contrast technique. The patient swallowed barium and effervesce nt crystals without difficulty or delay. Moderate tertiary contractions compatible with presbyesophagus. There is no evidence for filling defect, mass or diverticulum. No hiatal hernia seen. Subsequently single contrast cervical esophagram was performed which fails demonstrate evidence for a spiration penetration or mass. IMPRESSION: 1. Moderate presbyesophagus
== END | disposition home or self-care (01) ==
LOC: RADUSWWP 10:46
PROVIDERS: ATTEND Otolaryngology Otolaryngology/Facial Plastic Surgery
DX: K22.5 Diverticulum of esophagus, acquired (principal)
CPT/HCPCS: 74220

== ENCOUNTER → 2021-09-25 | Outpatient (CLI) | payer MEDICARE ==
[2021-09-25 08:49] VITALS: BP 163/71; PULSE 61; RESP 18; TEMP 98
--- NOTE | 2021-09-25 14:32 | P.PAINPG ---
PQRS Measure Charge Sheet Comment: A 71 yr old male with a history of severe and chronic low back pain secondary to BL sacroiliitis presents today for medication refills and evaluation s/p BL SI joint injection. Pt states he experienced 50% pain relief status post procedure. Pain level is currently at 5/10 in intensity, constant, throbbing in the lower aspect of the lumbar spine/tailbone region with shooting pain radiating towards the hips. Pain is provoked by walking for periods of 15 minutes or more. Pain is alleviated with medications, topicals, injections, physical therapy 1 year ago, daily home stretching regimen, walking in a pool, repositioning, laying supine and rest. Interventional pain procedures completed include BL SI joint injection 2 Patient is currently on Diclofenac gel, Tylenol OTC Patient denies any side effects of the medication(s), denies excessive drowsiness or sleepiness, denies suicidal ideation and reports that the current pain medication is helping to control the pain and improve activities of daily living. Patient denies any motor or sensory deficits. Patient denies any fever or night sweats, denies any change in the bowel movements or urination. Physical Examination: -Constitutional: Cooperative. Not in acute distress . - Neurologic: Cranial nerve II to XII intact. No focal neurological de ficits. - Psychatric: Alert & oriented x 3. Matching mood & appropriate affect. Judgment and insight intact. - Musculoskeletal: Cervical spine: Muscle bulk/ tone/ strength in the bilateral upper extremities normal Vertebral body tenderness to palpation over Spurling test positive Distraction test positive Facet loading test positive Thoracic spine Muscle bulk / tone/ strength in the bilateral paraspinal muscles normal Vertebral body tender to palpation over Facet loading test positive Lumbar spine: Motor bulk/ tone/ strength lower extremities , thigh and legs : 5/5 Deep tendon reflexes : Normal Knee Jerk. Normal Ankle Jerk . Vertebral body tenderness to palpation over Lumbar Facet Loading Test positive Straight Leg Raise: positive at 30 degrees right side/ left side Gaenslen's Test positive Sacral spine : Severe tenderness over the Sacroiliac joint: right side / left side Range of motion: Flexion of the lumbar spine <60 degrees Range of motion: Extension of the lumbar spine <20 degrees Gaenslen's Test positive Carmen test: positive right side > left side BL Thigh Thrust Test Sacral Thrust Test R>L Assessment and plan: Chronic low back pain secondary to BL Sacroiliitis Recommendation of BL SI joint injection #3. May need a series, up to every 3 mo, for optimal pain relief. Risks, benefits of procedure discussed and pt verbalized understanding. Admits to anticoagulant use and denies a medical history of diabetes. Protocol for discontinuation/ continuation of medications barbara procedure discussed. All patient questions answered MAPS reviewed and it was appropriate. Prescription refill for Diclofenac gel apply to [facility] BID Disp 1 tube w 1 refill I have spent less than 30 minutes on patient care today. Dr Castro was available by phone for the evaluation of this patient. The time was used to review the medical records including relevant urine studies and Prescription history (MAPs), review of the available imaging, evaluation and examination of the patient, coordination of care with the medical staff and if applicable referring physicians, as well as creation of the medical record - Pain Location Lower Medial Back Non-Pharmacological Interventions: Inactivity Pharmacological Interventions: PRN Medication, Topical Medication PQRS Narrative: Smoking Status Former smoker Hx Alcohol Use (MH) Yes: rare Home Medications: Ambulatory Orders Aspirin [Adult Low Dose Aspirin EC] 81 mg PO DAILY 12/20/14 Atorvastatin [Lipitor] 40 mg PO HS 12/20/14 Losartan/Hydrochlorothiazide [Losartan-Hctz 100-25 mg Tab] 1 tab PO DAILY 12/20/14 Multivit-Mins/Iron/Folic/Lycop [Centrum Men's Tablet] 1 tab PO DAILY 12/20/14 carBAMazepine [TEGretol XR] 200 mg PO DAILY 12/20/14 Cholecalciferol [Vitamin D3 (25 Mcg = 1000 Iu)] 2,000 unit PO DAILY 11/22/17 Ezetimibe [Zetia] 10 mg PO DAILY 11/22/17 Nitroglycerin Sl Tabs [Nitrostat] 0.4 mg SUBLINGUAL Q5M PRN #25 tab 11/25/17 carvediloL [Coreg*] 12.5 mg PO BID-W/MEALS #60 tab 01/10/18 Acetaminophen [Tylenol Extra Strength] 1,000 mg PO BID 01/02/21 Cetirizine HCl [Zyrtec] 10 mg PO DAILY PRN 01/02/21 Cyanocobalamin (Vitamin B-12) [Vitamin B-12] 1,000 mcg PO DAILY 01/02/21 Furosemide [Lasix] 20 mg PO DAILY PRN 01/02/21 Rivaroxaban [Xarelto] 20 mg PO W/SUPPER 01/02/21 Testosterone Cypionate [Depo-Testosterone] 200 mg IM Q14D 01/02/21 Ubidecarenone [Co Q-10] 100 mg PO DAILY 01/02/21 amLODIPine [Norvasc] 5 mg PO BID 01/02/21 Diclofenac Sodium Gel [Voltaren Gel] 100 gm TOPICAL BID 30 Days #100 gm 09/25/21 Controlled Substance Measures - Controlled Substance Measures Is patient prescribed a controlled substance at discharge?: No
== END ==
LOC: PNWHC3 08:12
PROVIDERS: ATTEND Specialist
DX: M46.1 Sacroiliitis, not elsewhere classified (principal); G89.29 Other chronic pain; Z87.891 Personal history of nicotine dependence; Z88.5 Allergy status to narcotic agent
CPT/HCPCS: 99211

== ENCOUNTER 2021-12-23 06:53 | Day surgery (SDC) | payer MEDICARE ==
[~2021-12-23 06:53] MED LIST changes: +LIDOCAINE 1% (10MG/ML) FOR IV START INTRADERMA PRN
[2021-12-23 07:26] VITALS: RESP 16; TEMP 98.1
[2021-12-23] MEDS ORDERED: LACTATED RINGERS 1,000 ML IV SCH (07:45)
[2021-12-23] MEDS ORDERED: MIDAZOLAM 2 MG/2 ML VIAL ONE (07:46)
[2021-12-23] MEDS ORDERED: fentaNYL (PF) 50 MCG/ML 2 ML AMP ONE (07:46)
[2021-12-23] MEDS ORDERED: methylPREDNISolone ACETATE 40 MG/ML 1 ML VIAL ONE (07:46)
[2021-12-23] MEDS ORDERED: ROPIVACAINE 5 MG/ML 20 ML AMPULE ONE (07:46)
[2021-12-23] MEDS ORDERED: IV FLUID CONTINUATION 1,000 ML IV ONE (08:03)
--- NOTE | 2021-12-23 08:06 | P.PCN ---
Date of Procedure: 12/23/21 Description of Procedure: Pre and postop diagnosis: Myofascial pain syndrome Procedure: Trigger point injections X 4 Muscle group 2 [ bilateral lumbar paraspinal, iliocostalis lumborum] Surgeon: Fede Nino Anesthesia: Versed 1 mg, and fentanyl 50 g Sedation supervision start time 0747 Sedation supervision ended time 0757 Complications: None Estimated blood loss: None Specimen removed: None Procedure indications: Patient had a history of myofascial pain syndrome. Patient tried conservative therapy. Came here for intervention procedure for better pain relief. Procedure description: Patient was seen and identified in the holding area risk benefits competitions alternative discussed with the patient. Patient agreed to proceed for the procedure signed the consent. Patient taken to the procedure area. Timeout was completed. A total number of 4 - trigger point area was marked with a sterile marker. After ChloraPrep 1 used to clean the area. Critical pause was taken. Using 25-gauge 1-1/[address]. Needle entered in each market site 2 mL of block solution injected at each level. The block solution containing 8 ml of 0.5% preservative-free ropivacaine with Depo-Medrol 40 MG. Needle removed intact skin cleaned and Ba nd-Aid applied. Patient tolerated the procedure well. Disposition: Patient discharge home after meeting the discharge criteria from the recovery. Patient scheduled to follow up with the pain clinic in 4 weeks for follow-up visit.
[2021-12-23 08:21] VITALS: BP 124/65; PULSE 53
== END 2021-12-23 08:36 | disposition home or self-care (01) ==
LOC: ORPAIN 06:53
DX: Z98.1 Arthrodesis status (principal); M51.36 Other intervertebral disc degeneration, lumbar region; M79.18 Myalgia, other site
CPT/HCPCS: 20552; J2250; J1030; J3010; J2795; 20553; 99152

== ENCOUNTER → 2022-01-14 | Outpatient (CLI) | payer MEDICARE ==
[2022-01-14 08:35] VITALS: BP 155/74; PULSE 71; RESP 18; TEMP 97.6
--- NOTE | 2022-01-14 14:40 | P.PAINPG ---
PQRS Measure Charge Sheet Comment: A 71 yr old male with a history of severe and chronic low back pain secondary to lumbar DDD and spondylosis with facet arthropathy without myelopathy presents today for evaluation s/p BL Lumbar TPIs. Pt states he experienced 80% pain relief x 3-4 wks s/p procedure. Pain level is currently at 7/10 in intensity, constant, localized in the lumbar spine, burning shooting towards the BLEs. Pain is provoked by walking, standing for periods of 10 min or more. Pain is alleviated with PT in 2020, daily exercises, water aerobics at the [facility], meds (Tyl OTC), topicals, repositioning and rest. Interventional pain procedures completed include BL Lumbar TPIs Patient is currently on Tyl OTC, Voltaren gel prn Patient denies any side effects of the medication(s), denies excessive drowsiness or sleepiness, denies suicidal ideation and reports that the current pain medication is helping to control the pain and improve activities of daily living. Patient denies any motor or sensory deficits. Patient denies any fever or night sweats, denies any change in the bowel movements or urination. Physical Examination: -Constitutional: Cooperative. Not in acute distress . - Neurologic: Cranial nerve II to XII intact. No focal neurological deficits. - Psychatric: Alert & oriented x 3. Matching mood & appropriate affect. Judgment and insight intact. - Musculoskeletal: Cervical spine: Muscle bulk/ tone/ strength in the bilateral upper extremities normal Vertebral body tenderness to palpation over Spurling test positive Distraction test positive Facet loading test positive Thoracic spine Muscle bulk / tone/ strength in the bilateral paraspinal muscles normal Vertebral body tender to palpation over Facet loading test positive Lumbar spine: Motor bulk/ tone/ strength lower extremities , thigh and legs : 5/5 Deep tendon reflexes : Normal Knee Jerk. Normal Ankle Jerk . Vertebral body tenderness to palpation over Lumbar Facet Loading Test positive BL paraspinal TTP w palpable spasms Straight Leg Raise: positive at 30 degrees right side/ left side Gaenslen's Test positive Sacral spine : Severe tenderness over the Sacroiliac joint: right side / left side Range of motion: Flexion of the lumbar spine <60 degrees Range of motion: Extension of the lumbar spine <20 degrees Gaenslen's Test positive Carmen test: positive right side / left side Thigh Thrust Test Sacral Thrust Test Assessment and plan: Chronic low back pain secondary to lumbar degenerative disc disease, spondylosis with facet arthropathy without myelopathy Recommendation of Repeat BL TPI L2-S1. May need a series of injections, up to 4 within a 12 mo period, for optimal pain relief. Risks, benefits of procedure discussed and pt verbalized understanding. Admits to anticoagulant use or medical history of diabetes. Protocol for discontinuation/ continuation of medications barbara procedure discussed. All patient questions answered MAPS reviewed and it was appropriate. Prescription refill for Voltaren gel 1 tube w 1 RF I have spent less than 30 minutes on patient care today. Dr Castro was available by phone for the evaluation of this patient. The time was used to review the medical records including relevant urine studies and Prescription history (MAPs), review of the available imaging, evaluation and examination of the patient, coordination of care with the medical staff and if applicable referring physicians, as well as creation of the medical record - Pain Location Lower Back Non-Pharmacological Interventions: Home Exercise, Inactivity, Physical Therapy, Sitting, Stretching Pharmacological Interventions: PRN Medication, Topical Medication PQRS Narrative: Smoking Status Former smoker Hx Alcohol Use (MH) Yes: rare Home Medications: Ambulatory Orders Aspirin [Adult Low Dose Aspirin EC] 81 mg PO DAILY 12/20/14 Atorvastatin [Lipitor] 40 mg PO HS 12/20/14 Losartan/Hydrochlorothiazide [Losartan-Hctz 100-25 mg Tab] 1 tab PO DAILY 12/20/14 Multivit-Mins/Iron/Folic/Lycop [Centrum Men's Tablet] 1 tab PO DAILY 12/20/14 carBAMazepine [TEGretol XR] 200 mg PO DAILY 12/20/14 Cholecalciferol [Vitamin D3 (25 Mcg = 1000 Iu)] 2,000 unit PO DAILY 11/22/17 Ezetimibe [Zetia] 10 mg PO DAILY 11/22/17 Nitroglycerin Sl Tabs [Nitrostat] 0.4 mg SUBLINGUAL Q5M PRN #25 tab 11/25/17 carvediloL [Coreg*] 12.5 mg PO BID-W/MEALS #60 tab 01/10/18 Acetaminophen [Tylenol Extra Strength] 1,000 mg PO BID 01/02/21 Cetirizine HCl [Zyrtec] 10 mg PO DAILY PRN 01/02/21 Cyanocobalamin (Vitamin B-12) [Vitamin B-12] 1,000 mcg PO DAILY 01/02/21 Furosemide [Lasix] 20 mg PO DAILY PRN 01/02/21 Rivaroxaban [Xarelto] 20 mg PO W/SUPPER 01/02/21 Testosterone Cypionate [Depo-Testosterone] 200 mg IM Q14D 01/02/21 Ubidecarenone [Co Q-10] 100 mg PO DAILY 01/02/21 amLODIPine [Norvasc] 5 mg PO BID 01/02/21 Diclofenac Sodium Gel [Voltaren Gel] 100 gm TOPICAL BID 30 Days #100 gm 09/25/21 Controlled Substance Measures - Controlled Substance Measures Is patient prescribed a controlled substance at discharge?: No
== END | disposition home or self-care (01) ==
LOC: PNWHC3 08:19
PROVIDERS: ATTEND Specialist
DX: M47.896 Other spondylosis, lumbar region (principal); M51.36 Other intervertebral disc degeneration, lumbar region
CPT/HCPCS: 99211

== ENCOUNTER 2022-02-19 07:53 | Day surgery (SDC) | payer MEDICARE ==
[2022-02-16 15:58] VITALS: BMI 29.5
[2022-02-19 08:22] VITALS: RESP 16; TEMP 97.9
[2022-02-19] MEDS ORDERED: methylPREDNISolone ACETATE 40 MG/ML 1 ML VIAL ONE (09:05)
[2022-02-19] MEDS ORDERED: ROPIVACAINE 5 MG/ML 20 ML AMPULE ONE (09:05)
[2022-02-19] MEDS ORDERED: MIDAZOLAM 2 MG/2 ML VIAL ONE (09:05)
[2022-02-19] MEDS ORDERED: fentaNYL (PF) 50 MCG/ML 2 ML AMP ONE (09:05)
--- NOTE | 2022-02-19 09:23 | P.PCN ---
Date of Procedure: 02/19/22 Procedure(s) Performed: Procedure= trigger point injections lumbar paraspinal muscles 4 on the left side lumbar paraspinal muscles, and 3 on the right side lumbar paraspinal muscles Preoperative diagnosis= 1-myofascial pain syndrome lumbar paraspinal muscles Postoperative diagnosis=Same as preop Diagnosis . Complication = none Condition= stable Anesthesia= moderate sedation with intravenous Versed 1 mg , and fentanyl 50 micrograms . Sedation start time: 0 913 Sedation end time : 0 919 Indication for the procedure= patient complaining of low back pain , examination was positive for severe tenderness over the lumbar paraspinal muscles bilaterally and patient diagnosed with myofascial pain syndrome, and he is here today to have trigger point injections. Description of the procedure= procedure risk and benefits discussed with the patient, including but not limited, risk of infection and bleeding, and ALLERGIC reaction to the medication and not complete pain relief and patient agreed with the preceding patient taken to the operating room, placed in sitting position or standard monitors applied to the patient then after induction of anesthesia back prepped with chlorhexidine 3 times , then each of the trigger point that was identified in the preop holding area each one of them injected with a total of the mixture of ropivacaine 0.5% was mixed with the 40 mg of Depo-Medrol, total of 14 ML of ropivacaine mixed with 40 mg of Depo-Medrol and 2 mL of the mixture used for each trigger point injection then after negative aspiration and there was no paresthesia during the injection, injection done using 25-gauge needle ,total of 4 trigger point identified and injected on the left side lumbar paraspinal muscles and 3 on the right side lumbar paraspinal muscles patient tolerated the procedure well without any complications, and he was discharged home in stable condition
[2022-02-19] MEDS ORDERED: IV FLUID CONTINUATION 800 ML IV ONE (09:24)
[2022-02-19 09:46] VITALS: BP 133/83; PULSE 69
== END 2022-02-19 10:09 | disposition home or self-care (01) ==
LOC: ORPAIN 07:53
PROVIDERS: ATTEND Specialist
DX: M79.18 Myalgia, other site (principal); M46.1 Sacroiliitis, not elsewhere classified; Z88.5 Allergy status to narcotic agent
CPT/HCPCS: 20552; J2250; J1030; J3010; J2795

== ENCOUNTER → 2022-03-11 | Outpatient (CLI) | payer MEDICARE ==
[2022-03-11 08:36] VITALS: BP 134/63; PULSE 64; RESP 18; TEMP 97.6
--- NOTE | 2022-03-11 14:31 | P.PAINPG ---
Objective - Vital Signs Vital signs: Vital Signs Temp 97.6 F 03/11/22 08:27 Pulse 64 03/11/22 08:27 Resp 18 03/11/22 08:27 BP 134/63 03/11/22 08:27 Pulse Ox 96 03/11/22 08:27 FiO2 Intake & Output 03/10/22 03/11/22 03/11/22 18:59 06:59 18:59 Weight 90.718 kg PQRS Measure Charge Sheet Mode of Arrival: Ambulatory Comment: A 71 yr old male with a history of severe and chronic low back pain secondary to lumbar DDD and spondylosis with facet arthropathy without myelopathy presents today for evaluation s/p BL TPIs Lumbar spine. Pt states he experienced 80 % pain relief x 3 wks s/p procedure. Pain level is currently at 8 /10 in intensity, constant, localized in the lumbar spine, dull/ sore in character w shooting towards BL thighs. Pain is provoked by standing/ walking for periods o f10 min, and sitting for periods of 30 min or more. Pain is alleviated with PT in 2020, home exercise regimen, water aerobics at [facility] 5 days a week, topicals, medications, repositioning and rest. Interventional pain procedures completed include BL Lumbar TPIs Patient is currently on Voltaren gel, Tyl Patient denies any side effects of the medication(s), denies excessive drowsiness or sleepiness, denies suicidal ideation and reports that the current pain medication is helping to control the pain and improve activities of daily living. Patient denies any motor or sensory deficits. Patient denies any fever or night sweats, denies any change in the bowel movements or urination. Physical Examination: -Constitutional: Cooperative. Not in acute distress . - Neurologic: Cranial nerve II to XII intact. No focal neurological deficits. - Psychatric: Alert & oriented x 3. Matching mood & appropriate affect. Judgment and insight intact. - Musculoskeletal: Cervical spine: Muscle bulk/ tone/ strength in the bilateral upper extremities normal Vertebral body tenderness to palpation over Spurling test positive Distraction test positive Facet loading test positive Thoracic spine Muscle bulk / tone/ strength in the bilateral paraspinal muscles normal Vertebral body tender to palpation over Facet loading test positive Lumbar spine: Motor bulk/ tone/ strength lower extremities , thigh and legs : 5/5 Deep tendon reflexes : Normal Knee Jerk. Normal Ankle Jerk . Vertebral body tenderness to palpation over Lumbar Facet Loading Test positive Palpable BL lumbar paraspinal spasms & TTP Straight Leg Raise: positive at 30 degrees right side/ left side Gaenslen's Test positive Sacral spine : Severe tenderness over the Sacroiliac joint: right side / left side Range of motion: Flexion of the lumbar spine <60 degrees Range of motion: Extension of the lumbar spine <20 degrees Gaenslen's Test positive Carmen test: positive right side / left side Thigh Thrust Test Sacral Thrust Test Assessment and plan: Chronic low back pain secondary to lumbar degenerative disc disease, spondylosis with facet arthropathy without myelopathy Recommendation of BL TPIs Lumbar spine L1-S1. May need as eries, up to every 2-3 mo, for optimal pain relief. Risks, benefits of procedure discussed and pt verbalized understanding. Admits to anticoagulant use or medical history of diabetes. Protocol for discontinuation/ continuation of medications barbara procedure discussed. All patient questions answered MAPS reviewed and it was appropriate. Prescription refill for Voltaren gel w 1 RF I have spent less than 30 minutes on patient care today. Dr Castro was available by phone for the evaluation of this patient. The time was used to review the medical records including relevant urine studies and Prescription history (MAPs), review of the available imaging, evaluation and examination of the patient, coordination of care with the medical staff and if applicable referring physicians, as well as creation of the medical record - Pain Location Lower Back Non-Pharmacological Interventions: Home Exercise, Inactivity, Physical Therapy, Position/Reposition, Stretching Pharmacological Interventions: PRN Medication, Topical Medication PQRS Narrative: Smoking Status Former smoker Blood Pressure 134/63 Pain Intensity [Lower Back] 8 Scale Used Numeric (1 - 10) Hx Alcohol Use (MH) Yes: rare Home Medications: Ambulatory Orders Aspirin [Adult Low Dose Aspirin EC] 81 mg PO DAILY 12/20/14 Atorvastatin [Lipitor] 40 mg PO HS 12/20/14 Losartan/Hydrochlorothiazide [Losartan-Hctz 100-25 mg Tab] 1 tab PO DAILY 12/20/14 Multivit-Mins/Iron/Folic/Lycop [Centrum Men's Tablet] 1 tab PO DAILY 12/20/14 carBAMazepine [TEGretol XR] 200 mg PO DAILY 12/20/14 Cholecalciferol [Vitamin D3 (25 Mcg = 1000 Iu)] 2,000 unit PO DAILY 11/22/17 Ezetimibe [Zetia] 10 mg PO DAILY 11/22/17 Nitroglycerin Sl Tabs [Nitrostat] 0.4 mg SUBLINGUAL Q5M PRN #25 tab 11/25/17 carvediloL [Coreg*] 12.5 mg PO BID-W/MEALS #60 tab 01/10/18 Acetaminophen [Tylenol Extra Strength] 1,000 mg PO BID 01/02/21 Cetirizine HCl [Zyrtec] 10 mg PO DAILY PRN 01/02/21 Cyanocobalamin (Vitamin B-12) [Vitamin B-12] 1,000 mcg PO DAILY 01/02/21 Furosemide [Lasix] 20 mg PO DAILY PRN 01/02/21 Rivaroxaban [Xarelto] 20 mg PO W/SUPPER 01/02/21 Testosterone Cypionate [Depo-Testosterone] 200 mg IM Q14D 01/02/21 Ubidecarenone [Co Q-10] 100 mg PO DAILY 01/02/21 amLODIPine [Norvasc] 5 mg PO BID 01/02/21 Diclofenac Sodium Gel [Voltaren Gel] 100 gm TOPICAL BID 30 Days #1 each 03/11/22 Controlled Substance Measures - Controlled Substance Measures Is patient prescribed a controlled substance at discharge?: No
== END ==
LOC: PNWHC3 08:15
PROVIDERS: ATTEND Specialist
DX: M47.816 Spondylosis without myelopathy or radiculopathy, lumbar region (principal); M51.36 Other intervertebral disc degeneration, lumbar region; Z79.01 Long term (current) use of anticoagulants; Z87.891 Personal history of nicotine dependence; Z88.5 Allergy status to narcotic agent
CPT/HCPCS: 99211

== ENCOUNTER → 2022-05-20 | Outpatient (CLI) | payer MEDICARE ==
--- NOTE | 2022-05-20 16:11 | US ---
EXAMINATION TYPE: US kidneys/renal and bladder DATE OF EXAM: 05/20/2022 COMPARISON: NONE CLINICAL HISTORY: N17.9 ACUTE KIDNEY FAILURE, UNSPECIFIED. EXAM MEASUREMENTS: Right Kidney: 12.3 x 5.6 x 4.2 cm Left Kidney: 11.6 x 5.2 x 5.3 cm Right Kidney: no evidence of hydronephrosis Left Kidney: cystic area mid = 3.0 x 2.7 x 2.5cm. complex anechoic area lower pole = 3.2 x 2.3 x 3.9 cm with echogenic focus = 1.3cm within Bladder: wnl Bilateral Jets seen: yes There is no evidence for hydronephrosis at this point in time. No nephrolithiasis is seen. Cortical medullary differentiation maintained bilaterally there is 3.0 x 2.7 cm simple appearing thin-walled c yst lower pole of the left kidney. There is additional 3.9 x 2.3 x 3.2 cm thin-walled cystic mass wit h septa and central 1.3 cm hyperechoic focus. This could reflect partially calcified cystic lesion. T he urinary bladder is adequately distended. Bilateral ureteral jets are seen. IMPRESSION: No hydronephrosis seen bilaterally. There is 3.9 cm nonsimple cyst lower pole left kidney . Advise renal protocol contrast-enhanced CT or MRI to further evaluate and exclude malignant etiolog y.
== END | disposition home or self-care (01) ==
LOC: RADUSWWP 15:25
PROVIDERS: ATTEND Family Medicine
DX: N17.9 Acute kidney failure, unspecified (principal); N28.1 Cyst of kidney, acquired
CPT/HCPCS: 76770

== ENCOUNTER 2022-05-26 08:19 | Day surgery (SDC) | payer MEDICARE ==
[2022-05-22 15:07] VITALS: BMI 29.5
[2022-05-26 09:12] VITALS: TEMP 98
[2022-05-26] MEDS ORDERED: ROPIVACAINE 5 MG/ML 20 ML AMPULE ONE (09:30)
[2022-05-26] MEDS ORDERED: fentaNYL (PF) 50 MCG/ML 2 ML AMP ONE (09:30)
[2022-05-26] MEDS ORDERED: methylPREDNISolone ACETATE 40 MG/ML 1 ML VIAL ONE (09:30)
[2022-05-26] MEDS ORDERED: MIDAZOLAM 2 MG/2 ML VIAL ONE (09:30)
--- NOTE | 2022-05-26 09:40 | P.PCN ---
Date of Procedure: 05/26/22 Procedure(s) Performed: Procedure(s) Performed: Procedure= trigger point injections lumbar paraspinal muscles 2 on the left side lumbar paraspinal muscles, and 3 on the right side lumbar paraspinal muscles Preoperative diagnosis= 1-myofascial pain syndrome lumbar paraspinal muscles Postoperative diagnosis=Same as preop Diagnosis . Complication = none Condition= stable Anesthesia= moderate sedation with intravenous Versed 1 mg , and fentanyl 50 micrograms . Sedation start time: 0 932 Sedation end time : 0 937 Indication for the procedure= patient complaining of low back pain , examination was positive for severe tenderness over the lumbar paraspinal muscles bilaterally and patient diagnosed with myofascial pain syndrome, and he is here today to have trigger point injections. Description of the procedure= procedure risk and benefits discussed with the patient, including but not limited, risk of infection and bleeding, and ALLERGIC reaction to the medication and not complete pain relief and patient agreed with the preceding patient taken to the operating room, placed in sitting position or standard monitors applied to the patient then after induction of anesthesia back prepped with chlorhexidine 3 times , then each of the trigger point that was identified in the preop holding area each one of them injected with a total of the mixture of ropivacaine 0.5% was mixed with the 40 mg of Depo-Medrol, total of 10 ML of ropivacaine mixed with 40 mg of Depo-Medrol and 2 mL of the mixture used for each trigger point injection then after negative aspiration and there was no paresthesia during the injection, injection done using 25-gauge needle ,total of 2 trigger point identified and injected on the left side lumbar paraspinal muscles and 3 on the right side lumbar paraspinal muscles patient tolerated the procedure well without any complications, and he was discharged home in stable condition
[2022-05-26] MEDS ORDERED: IV FLUID CONTINUATION 800 ML IV ONE (09:42)
[2022-05-26 09:49] VITALS: RESP 18
[2022-05-26 10:13] VITALS: BP 137/78; PULSE 55
== END 2022-05-26 10:21 | disposition home or self-care (01) ==
LOC: ORPAIN 08:19
PROVIDERS: ATTEND Specialist
DX: M79.18 Myalgia, other site (principal); Z88.5 Allergy status to narcotic agent
CPT/HCPCS: 20553; J2250; J1030; J3010; J2795

== ENCOUNTER → 2022-06-18 | Outpatient (CLI) | payer MEDICARE ==
[2022-06-18 08:50] VITALS: BP 174/93; PULSE 67; RESP 16; TEMP 97.9
--- NOTE | 2022-06-18 14:28 | P.PAINPG ---
PQRS Measure Charge Sheet Comment: A 71 yr old male with a history of severe and chronic LBP secondary to lumbar DDD and spondylosis with facet arthropathy without myelopathy presents today for evaluation s/p BL TPIs of the lumbar spine. Pt states he experienced 80 % pain relief x 3 wks s/p procedure. Pain level is provoked at 8 /10 in intensity, constant, localized in the lumbar spine, dull in character w shooting towards the paraspinal muscles BL. Pain is provoked by twisting. Pain is alleviated with injections, topicals, PT in 2020, home exercise regimen and exercise 3 times weekly at [facility], repositioning and rest. Interventional pain procedures completed include BL Lumbar TPIs x4, BL SI x3 Patient is currently on Diclofenac gel Patient denies any side effects of the medication(s), denies excessive drowsiness or sleepiness, denies suicidal ideation and reports that the current pain medication is helping to control the pain and improve activities of daily living. Patient denies any motor or sensory deficits. Patient denies any fever or night sweats, denies any change in the bowel movements or urination. Physical Examination: -Constitutional: Cooperative. Not in acute distress . - Neurologic: Cranial nerve II to XII intact. No focal neurological deficits. - Psychatric: Alert & oriented x 3. Matching mood & appropriate affect. Judgment and insight intact. - Musculoskeletal: Cervical spine: Muscle bulk/ tone/ strength in the bilateral upper extremities normal Vertebral body tenderness to palpation over Spurling test positive Distraction test positive Facet loading test positive TTP Thoracic spine Muscle bulk / tone/ strength in the bilateral paraspinal muscles normal Vertebral body tender to palpation over Facet loading test positive TTP Lumbar spine: Motor bulk/ tone/ strength lower extremities , thigh and legs : 5/5 Deep tendon reflexes : Normal Knee Jerk. Normal Ankle Jerk . Vertebral body tenderness to palpation over Lumbar Facet Loading Test positive BL lumbar paraspinal TTP L2-S1 Straight Leg Raise: positive at 30 degrees right side/ left side Gaenslen's Test positive Sacral spine : Severe tenderness over the Sacroiliac joint: right side / left side Range of motion: Flexion of the lumbar spine <60 degrees Range of motion: Extension of the lumbar spine <20 degrees Gaenslen's Test positive right side / left side Carmen test: positive right side / left side Thigh Thrust Test positive right side / left side Sacral Thrust Test positive right side / left side Assessment and plan: Chronic LBP secondary to lumbar DDD, spondylosis with facet arthropathy without myelopathy Recommendation of BL TPIs L1-S1. Pt would like it scheduled after his surgery dated 07/14/22. Risks, benefits of procedure discussed and pt verbalized understanding. Admits to anticoagulant use or medical history of diabetes. Protocol for discontinuation/ continuation of medications barbara procedure discussed. Refill of Diclofenac gel w 1 RF. All questions answered. I have spent less than 30 minutes on patient care today. Dr Castro was available by phone for the evaluation of this patient. The time was used to review the medical records including relevant urine studies and Prescription history (MAPs), review of the available imaging, evaluation and examination of the patient, coordination of care with the medical staff and if applicable referring physicians, as well as creation of the medical record PQRS Narrative: Smoking Status Former smoker Hx Alcohol Use (MH) Yes: rare Home Medications: Ambulatory Orders Aspirin [Adult Low Dose Aspirin EC] 81 mg PO DAILY 12/20/14 Atorvastatin [Lipitor] 40 mg PO HS 12/20/14 Losartan/Hydrochlorothiazide [Losartan-Hctz 100-25 mg Tab] 1 tab PO DAILY 12/20/14 Multivit-Mins/Iron/Folic/Lycop [Centrum Men's Tablet] 1 tab PO DAILY 12/20/14 carBAMazepine [TEGretol XR] 200 mg PO DAILY 12/20/14 Ezetimibe [Zetia] 10 mg PO DAILY 11/22/17 Nitroglycerin Sl Tabs [Nitrostat] 0.4 mg SUBLINGUAL Q5M PRN #25 tab 11/25/17 carvediloL [Coreg*] 12.5 mg PO BID-W/MEALS #60 tab 01/10/18 Acetaminophen [Tylenol Extra Strength] 1,000 mg PO BID 01/02/21 Cetirizine HCl [Zyrtec] 10 mg PO DAILY PRN 01/02/21 Furosemide [Lasix] 20 mg PO DAILY PRN 01/02/21 Rivaroxaban [Xarelto] 20 mg PO W/SUPPER 01/02/21 Testosterone Cypionate [Depo-Testosterone] 200 mg IM Q14D 01/02/21 Ubidecarenone [Co Q-10] 100 mg PO DAILY 01/02/21 amLODIPine [Norvasc] 5 mg PO BID 01/02/21 Diclofenac Sodium Gel [Voltaren Gel] 100 gm TOPICAL BID 30 Days #1 each 03/11/22 Controlled Substance Measures - Controlled Substance Measures Is patient prescribed a controlled substance at discharge?: No
== END ==
LOC: PNWHC3 08:21
PROVIDERS: ATTEND Specialist
DX: M51.36 Other intervertebral disc degeneration, lumbar region (principal); M47.817 Spondylosis without myelopathy or radiculopathy, lumbosacral region; G89.29 Other chronic pain; Z87.891 Personal history of nicotine dependence; Z79.82 Long term (current) use of aspirin; Z88.5 Allergy status to narcotic agent
CPT/HCPCS: 99211

== ENCOUNTER → 2023-06-16 | Outpatient (CLI) | payer MEDICARE ==
[2023-06-16 09:07] VITALS: BP 132/62; PULSE 73; RESP 15; TEMP 98.4
--- NOTE | 2023-06-16 14:52 | P.PAINPG ---
Objective - Vital Signs Vital signs: Intake & Output 06/15/23 06/16/23 06/16/23 18:59 06:59 18:59 Weight 81.647 kg PQRS Measure Charge Sheet Comment: A 71 yr old male with a history of severe and chronic LBP secondary to lumbar DDD and spondylosis with facet arthropathy without myelopathy presents today for evaluation. Pain level is provoked at 8 /10 in intensity, constant, localized in the lumbar spine,predominantly axial, dull in character w shooting towards the paraspinal muscles BL. Pain is provoked by twisting. Pain is alleviated with injections, topicals, PT in 2020, home exercise regimen and exercise 3 times weekly at [facility], repositioning and rest. Oswestry axial pain score of 27. Interventional pain procedures completed include BL Lumbar TPIs x4, BL SI x3 Patient is currently on Diclofenac gel Patient denies any side effects of the medication(s), denies excessive drowsiness or sleepiness, denies suicidal ideation and reports that the current pain medication is helping to control the pain and improve activities of daily living. Patient denies any motor or sensory deficits. Patient denies any fever or night sweats, denies any change in the bowel movements or urination. Physical Examination: -Constitutional: Cooperative. Not in acute distress . - Neurologic: Cranial nerve II to XII intact. No focal neurological deficits. - Psychatric: Alert & oriented x 3. Matching mood & appropriate affect. Judgment and insight intact. - Musculoskeletal: Cervical spine: Muscle bulk/ tone/ strength in the bilateral upper extremities normal Vertebral body tenderness to palpation over Spurling test positive Distraction test positive Facet loading test positive TTP Thoracic spine Muscle bulk / tone/ strength in the bilateral paraspinal muscles normal Vertebral body tender to palpation over Facet loading test positive TTP Lumbar spine: Motor bulk/ tone/ strength lower extremities , thigh and legs : 5/5 Deep tendon reflexes : Normal Knee Jerk. Normal Ankle Jerk . Vertebral body tenderness to palpation over Lumbar Facet Loading Test positive BL lumbar paraspinal TTP L1-S1 Straight Leg Raise: positive at 30 degrees right side/ left side Gaenslen's Test positive Sacral spine : Severe tenderness over the Sacroiliac joint: right side / left side Range of motion: Flexion of the lumbar spine <60 degrees Range of motion: Extension of the lumbar spine <20 degrees Gaenslen's Test positive right side / left side Carmen test: positive right side / left side Thigh Thrust Test positive right side / left side Sacral Thrust Test positive right side / left side Imaging: CT non contrast of the lumbar spine from 05/23/23 reviewed Assessment and plan: Chronic LBP secondary to lumbar DDD, spondylosis with facet arthropathy without myelopathy Recommendation of BL TPIs L1-S1 #1. Pt would like it scheduled after his surgery dated 07/14/22. Risks, benefits of procedure discussed and pt verbalized understanding. Admits to anticoagulant use or medical history of diabetes. Protocol for discontinuation/ continuation of medications barbara procedure di scussed. Refill of Diclofenac gel w 1 RF. All questions answered. I have spent less than 30 minutes on patient care today. Dr Castro was available by phone for the evaluation of this patient. The time was used to review the medical records including relevant urine studies and Prescription history (MAPs), review of the available imaging, evaluation and examination of the patient, coordination of care with the medical staff and if applicable referring physicians, as well as creation of the medical record PQRS Narrative: Smoking Status Former smoker Hx Alcohol Use (MH) Yes: rare Home Medications: Ambulatory Orders Aspirin [Adult Low Dose Aspirin EC] 81 mg PO DAILY 12/20/14 Atorvastatin [Lipitor] 40 mg PO HS 12/20/14 Losartan/Hydrochlorothiazide [Losartan-Hctz 100-25 mg Tab] 1 tab PO DAILY 12/20/14 Multivit-Mins/Iron/Folic/Lycop [Centrum Men's Tablet] 1 tab PO DAILY 12/20/14 carBAMazepine [TEGretol XR] 200 mg PO DAILY 12/20/14 Ezetimibe [Zetia] 10 mg PO DAILY 11/22/17 Nitroglycerin Sl Tabs [Nitrostat] 0.4 mg SUBLINGUAL Q5M PRN #25 tab 11/25/17 carvediloL [Coreg*] 12.5 mg PO BID-W/MEALS #60 tab 01/10/18 Acetaminophen [Tylenol Extra Strength] 1,000 mg PO BID 01/02/21 Cetirizine HCl [Zyrtec] 10 mg PO DAILY PRN 01/02/21 Furosemide [Lasix] 20 mg PO DAILY PRN 01/02/21 Rivaroxaban [Xarelto] 20 mg PO W/SUPPER 01/02/21 Testosterone Cypionate [Depo-Testosterone] 200 mg IM Q14D 01/02/21 Ubidecarenone [Co Q-10] 100 mg PO DAILY 01/02/21 amLODIPine [Norvasc] 5 mg PO BID 01/02/21 Diclofenac Sodium Gel [Voltaren 1% Gel] 100 gm TOPICAL BID 30 Days #1 each 06/18/22 Diclofenac Sodium Gel [Voltaren 1% Gel] 100 gm TOPICAL BID 30 Days #100 gm 06/24/22 Controlled Substance Measures - Controlled Substance Measures Is patient prescribed a controlled substance at discharge?: No
== END ==
LOC: PNWHC3 08:43
PROVIDERS: ATTEND Specialist
DX: M51.36 Other intervertebral disc degeneration, lumbar region (principal); M51.34 Other intervertebral disc degeneration, thoracic region; M79.18 Myalgia, other site; M54.50 Low back pain, unspecified; M47.816 Spondylosis without myelopathy or radiculopathy, lumbar region; M47.812 Spondylosis without myelopathy or radiculopathy, cervical region; Z98.1 Arthrodesis status; Z88.5 Allergy status to narcotic agent; Z87.891 Personal history of nicotine dependence
CPT/HCPCS: 99211

== ENCOUNTER 2023-06-29 08:03 | Day surgery (SDC) | payer MEDICARE ==
[2023-06-24 16:13] VITALS: BMI 28.0
[~2023-06-29 08:03] MED LIST changes: -LIDOCAINE 1% (10MG/ML) FOR IV START INTRADERMA PRN
[2023-06-29] MEDS: LACTATED RINGERS 1,000 ML IV ONE (08:28)
[2023-06-29 08:47] VITALS: TEMP 97.7
[2023-06-29] MEDS ORDERED: ROPIVACAINE 5MG/ML 20ML VIAL ONE (09:10)
[2023-06-29] MEDS ORDERED: methylPREDNISolone ACETATE 40 MG/ML 1 ML VIAL ONE (09:10)
--- NOTE | 2023-06-29 09:18 | P.PCN ---
Date of Procedure: 06/29/23 Procedure(s) Performed: Procedure= trigger point injections lumbar paraspinal muscles 4 on the left side lumbar paraspinal muscles, and 3 on the right side lumbar paraspinal muscles Preoperative diagnosis= 1-myofascial pain syndrome lumbar paraspinal muscles Postoperative diagnosis=Same as preop Diagnosis . Complication = none Condition= stable Anesthesia= none Indication for the procedure= patient complaining of low back pain , examination was positive for severe tenderness over the lumbar paraspinal muscles bilaterally and patient diagnosed with myofascial pain syndrome, and he is here today to have trigger point injections. Description of the procedure= procedure risk and benefits discussed with the patient, including but not limited, risk of infection and bleeding, and ALLERGIC reaction to the medication and not complete pain relief and patient agreed with the preceding patient taken to the operating room, placed in sitting position or standard monitors applied to the patient then after induction of anesthesia back prepped with chlorhexidine 3 times , then each of the trigger point that was identified in the preop holding area each one of them injected with a total of the mixture of ropivacaine 0.5% was mixed with the 40 mg of Depo-Medrol, total of 14 ML of ropivacaine mixed with 40 mg of Depo-Medrol ,and 2 mL of the mixture used for each trigger point injection then after negative aspiration and there was no paresthesia during the injection, injection done using 25-gauge needle ,total of 4 trigger point identified and injected on the left side lumbar paraspinal muscles and 3 on the right side lumbar paraspinal muscles patient tolerated the procedure well without any complications, and he was discharged home in stable condition
[2023-06-29 09:36] VITALS: RESP 18
[2023-06-29 10:21] VITALS: BP 136/69; PULSE 55
== END 2023-06-29 09:49 | disposition home or self-care (01) ==
LOC: ORPAIN 08:03
PROVIDERS: ATTEND Specialist
DX: M79.18 Myalgia, other site (principal); Z79.82 Long term (current) use of aspirin; Z79.01 Long term (current) use of anticoagulants; Z88.5 Allergy status to narcotic agent
CPT/HCPCS: 20553; J2795; J1010

== ENCOUNTER → 2023-07-14 | Outpatient (CLI) | payer MEDICARE ==
[2023-07-14 08:57] VITALS: BP 149/73; PULSE 72; RESP 16; TEMP 97.6
--- NOTE | 2023-07-14 14:43 | P.PAINPG ---
PQRS Measure Charge Sheet Comment: A 71 yr old male with a history of severe and chronic LBP secondary to lumbar DDD and spondylosis with facet arthropathy without myelopathy presents today for evaluation s/p BL Lumbar TPIs. Pt states he experienced 70 % pain relief x 2 wks s/p procedure. Pain level is provoked at 7 /10 in intensity, constant, localized in the lumbar spine, predominantly axial, dull in character w shooting towards the paraspinal muscles BL. Pain is provoked by twisting. Pain is alleviated with injections, topicals, PT in 2020, home exercise regimen and exercise 3 times weekly at [facility], repositioning and rest. Oswestry axial pain score of 26. Interventional pain procedures completed include BL Lumbar TPIs x5, BL SI x3 Patient is currently on Diclofenac gel Patient denies any side effects of the medication(s), denies excessive drowsiness or sleepiness, denies suicidal ideation and reports that the current pain medication is helping to control the pain and improve activities of daily living. Patient denies any motor or sensory deficits. Patient denies any fever or night sweats, denies any change in the bowel movements or urination. Physical Examination: -Constitutional: Cooperative. Not in acute distress . - Neurologic: Cranial nerve II to XII intact. No focal neurological deficits. - Psychatric: Alert & oriented x 3. Matching mood & appropriate affect. Judgment and insight intact. - Musculoskeletal: Cervical spine: Muscle bulk/ tone/ strength in the bilateral upper extremities normal Vertebral body tenderness to palpation over Spurling test positive Distraction test positive Facet loading test positive TTP Thoracic spine Muscle bulk / tone/ strength in the bilateral paraspinal muscles normal Vertebral body tender to palpation over Facet loading test positive TTP Lumbar spine: Motor bulk/ tone/ strength lower extremities , thigh and legs : 5/5 Deep tendon reflexes : Normal Knee Jerk. Normal Ankle Jerk . Vertebral body tenderness to palpation over Lumbar Facet Loading Test positive BL lumbar paraspinal TTP L1-S1 Straight Leg Raise: positive at 30 degrees right side/ left side Gaenslen's Test positive Sacral spine : Severe tenderness over the Sacroiliac joint: right side / left side Range of motion: Flexion of the lumbar spine <60 degrees Range of motion: Extension of the lumbar spine <20 degrees Gaenslen's Test positive right side / left side Carmen test: positive right side / left side Thigh Thrust Test positive right side / left side Sacral Thrust Test positive right side / left side Imaging: CT non contrast of the lumbar spine from 05/23/23 reviewed Assessment and plan: Chronic LBP secondary to lumbar DDD, spondylosis with facet arthropathy without myelopathy Recommendation of BL Lumbar TPIs #2. Risks, benefits of procedure discussed and pt verbalized understanding. Admits to anticoagulant use or medical history of diabetes. Protocol for discontinuation/ continuation of medications barbara procedure discussed. Refill of Diclofenac gel w 1 RF. All questions answered. I have spent less than 30 minutes on patient care today. Dr Castro was available by phone for the evaluation of this patient. The time was used to review the medical records including relevant urine studies and Prescription history (MAPs), review of the available imaging, evaluation and examination of the patient, coordination of care with the medical staff and if applicable referring physicians, as well as creation of the medical record PQRS Narrative: Smoking Status Former smoker Hx Alcohol Use (MH) Yes: rare Home Medications: Ambulatory Orders Aspirin [Adult Low Dose Aspirin EC] 81 mg PO DAILY 12/20/14 Atorvastatin [Lipitor] 40 mg PO HS 12/20/14 Losartan/Hydrochlorothiazide [Losartan-Hctz 100-25 mg Tab] 1 tab PO DAILY 12/20/14 Multivit-Mins/Iron/Folic/Lycop [Centrum Men's Tablet] 1 tab PO DAILY 12/20/14 carBAMazepine [TEGretol XR] 100 mg PO DAILY 12/20/14 Ezetimibe [Zetia] 10 mg PO DAILY 11/22/17 Nitroglycerin Sl Tabs [Nitrostat] 0.4 mg SUBLINGUAL Q5M PRN #25 tab 11/25/17 carvediloL [Coreg*] 12.5 mg PO BID-W/MEALS #60 tab 01/10/18 Acetaminophen [Tylenol Extra Strength] 1,000 mg PO BID 01/02/21 Cetirizine HCl [Zyrtec] 10 mg PO DAILY PRN 01/02/21 Furosemide [Lasix] 20 mg PO DAILY PRN 01/02/21 Rivaroxaban [Xarelto] 20 mg PO W/SUPPER 01/02/21 Testosterone Cypionate [Depo-Testosterone] 200 mg IM Q14D 01/02/21 Ubidecarenone [Co Q-10] 100 mg PO DAILY 01/02/21 amLODIPine [Norvasc] 5 mg PO BID 01/02/21 hydrALAZINE HCL 25 mg PO DAILY 06/24/23 Controlled Substance Measures - Controlled Substance Measures Is patient prescribed a controlled substance at discharge?: No
== END ==
LOC: PNWHC3 08:03
PROVIDERS: ATTEND Specialist
DX: M54.50 Low back pain, unspecified (principal); M51.36 Other intervertebral disc degeneration, lumbar region; M47.816 Spondylosis without myelopathy or radiculopathy, lumbar region; Z88.5 Allergy status to narcotic agent; Z87.891 Personal history of nicotine dependence
CPT/HCPCS: 99211

== ENCOUNTER 2023-07-27 08:56 | Day surgery (SDC) | payer MEDICARE ==
[2023-07-27 09:48] VITALS: RESP 16; TEMP 98
[2023-07-27] MEDS ORDERED: TRIAMCINOLONE ACETONIDE 40 MG/ML 1 ML VIAL ONE (10:00)
[2023-07-27] MEDS ORDERED: ROPIVACAINE 5MG/ML 20ML VIAL ONE (10:00)
--- NOTE | 2023-07-27 10:05 | P.PCN ---
Date of Procedure: 07/27/23 Surgeon: Diya Rosas Pathology: none sent Condition: stable Disposition: PACU Description of Procedure: Pre and postop diagnosis: Myofascial pain in the lumbar paravertebral musculature bilaterally Anesthesia :none Physician: Diya Rosas MD Description of procedure: The patient was seen in preop holding area, consent was obtained, the trigger points were marked on skin. Then the patient was brought into the procedure room and placed in the sitting position. Skin was prepped with ChloraPrep and draped in a sterile manner. Then I used 25-gauge 1- 1/2 inch needle to go through the skin and into the trigger points and injected 1 mL of ropivacaine 0.5% mixed with 20 mg of Kenalog in a solution of 9.MLS of ropivacaine 0.5% +20 mg of Kenalog. 1 mL of the solution was injected at each trigger point with a total of 9 trigger points injected in the lumbar paravertebral musculaturefrom L1 to S1 level bilaterally . . Patient tolerated procedure well.
[2023-07-27 10:47] VITALS: BP 134/69; PULSE 61
== END 2023-07-27 10:41 | disposition home or self-care (01) ==
LOC: ORPAIN 08:56
PROVIDERS: ATTEND Anesthesiology
DX: M79.18 Myalgia, other site (principal); M47.816 Spondylosis without myelopathy or radiculopathy, lumbar region; I25.10 Atherosclerotic heart disease of native coronary artery without angina pectoris; Z86.73 Personal history of transient ischemic attack (TIA), and cerebral infarction without residual deficits; E11.9 Type 2 diabetes mellitus without complications; Z79.82 Long term (current) use of aspirin; Z79.01 Long term (current) use of anticoagulants; Z79.899 Other long term (current) drug therapy
CPT/HCPCS: 20553; J3301; J2795

== ENCOUNTER → 2023-08-16 | Outpatient (CLI) | payer MEDICARE ==
[2023-08-16 09:18] VITALS: BP 135/71; PULSE 60; RESP 16
--- NOTE | 2023-08-16 14:57 | P.PAINPG ---
PQRS Measure Charge Sheet Comment: A 71 yr old male with a history of severe and chronic LBP secondary to lumbar DDD and spondylosis with facet arthropathy without myelopathy presents today for evaluation s/p BL Lumbar TPI L2-S1 #2. Pt states he experienced 80 % pain relief x 3 wks s/p procedure. Pain level is provoked at 6 /10 in intensity, constant, localized in the lumbar spine, predominantly axial, dull in character w shooting towards the paraspinal muscles BL. Pain is provoked by twisting. Pain is alleviated with injections, topicals, PT in 2020, home exercise regimen and exercise 3 times weekly at [facility], repositioning and rest. Oswestry axial pain score of 25. Interventional pain procedures completed include BL Lumbar TPIs x6, BL SI x3 Patient is currently on Diclofenac gel Patient denies any side effects of the medication(s), denies excessive drowsiness or sleepiness, denies suicidal ideation and reports that the current pain medication is helping to control the pain and improve activities of daily living. Patient denies any motor or sensory deficits. Patient denies any fever or night sweats, denies any change in the bowel movements or urination. Physical Examination: -Constitutional: Cooperative. Not in acute distress . - Neurologic: Cranial nerve II to XII intact. No focal neurological deficits. - Psychatric: Alert & oriented x 3. Matching mood & appropriate affect. Judgment and insight intact. - Musculoskeletal: Cervical spine: Muscle bulk/ tone/ strength in the bilateral upper extremities normal Vertebral body tenderness to palpation over Spurling test positive Distraction test positive Facet loading test positive TTP Thoracic spine Muscle bulk / tone/ strength in the bilateral paraspinal muscles normal Vertebral body tender to palpation over Facet loading test positive TTP Lumbar spine: Motor bulk/ tone/ strength lower extremities , thigh and legs : 5/5 Deep tendon reflexes : Normal Knee Jerk. Normal Ankle Jerk . Vertebral body tenderness to palpation over Lumbar Facet Loading Test positive BL lumbar paraspinal TTP L1-S1 Straight Leg Raise: positive at 30 degrees right side/ left side Gaenslen's Test positive Sacral spine : Severe tenderness over the Sacroiliac joint: right side / left side Range of motion: Flexion of the lumbar spine <60 degrees Range of motion: Extension of the lumbar spine <20 degrees Gaenslen's Test positive right side / left side Carmen test: positive right side / left side Thigh Thrust Test positive right side / left side Sacral Thrust Test positive right side / left side Imaging: CT non contrast of the lumbar spine from 05/23/23 reviewed Assessment and plan: Chronic LBP secondary to lumbar DDD, spondylosis with facet arthropathy without myelopathy Recommendation of BL TPIs L1-S1 #3. May need a series of injections for optimal pain relief. Risks, benefits of procedure discussed and pt verbalized understanding. Admits to anticoagulant use or medical history of diabetes. Protocol for discontinuation/ continuation of medications barbara procedure discussed. All questions answered. I have spent less than 30 minutes on patient care today. Dr Castro was available by phone for the evaluation of this patient. The time was used to review the medical records including relevant urine studies and Prescription history (MAPs), review of the available imaging, evaluation and examination of the patient, coordination of care with the medical staff and if applicable referring physicians, as well as creation of the medical record - Pain Location Bilateral Lower Back Non-Pharmacological Interventions: Exercise, Home Exercise, Inactivity, Physical Therapy, Position/Reposition, Relaxation Technique, Sitting, Stretching Pharmacological Interventions: Epidural, PRN Medication, Topical Medication PQRS Narrative: Smoking Status Former smoker Hx Alcohol Use (MH) Yes: rare Home Medications: Ambulatory Orders Aspirin [Adult Low Dose Aspirin EC] 81 mg PO DAILY 12/20/14 Atorvastatin [Lipitor] 40 mg PO HS 12/20/14 Losartan/Hydrochlorothiazide [Losartan-Hctz 100-25 mg Tab] 1 tab PO DAILY 12/20/14 Multivit-Mins/Iron/Folic/Lycop [Centrum Men's Tablet] 1 tab PO DAILY 12/20/14 carBAMazepine [TEGretol XR] 100 mg PO DAILY 12/20/14 Ezetimibe [Zetia] 10 mg PO DAILY 11/22/17 Nitroglycerin Sl Tabs [Nitrostat] 0.4 mg SUBLINGUAL Q5M PRN #25 tab 11/25/17 carvediloL [Coreg*] 12.5 mg PO BID-W/MEALS #60 tab 01/10/18 Acetaminophen [Tylenol Extra Strength] 1,000 mg PO BID 01/02/21 Cetirizine HCl [Zyrtec] 10 mg PO DAILY PRN 01/02/21 Furosemide [Lasix] 20 mg PO DAILY PRN 01/02/21 Rivaroxaban [Xarelto] 20 mg PO 1900 01/02/21 Testosterone Cypionate [Depo-Testosterone] 200 mg IM Q14D 01/02/21 Ubidecarenone [Co Q-10] 100 mg PO DAILY 01/02/21 amLODIPine [Norvasc] 5 mg PO BID 01/02/21 hydrALAZINE HCL 25 mg PO BID 06/24/23 Controlled Substance Measures - Controlled Substance Measures Is patient prescribed a controlled substance at discharge?: No
== END ==
LOC: PNWHC3 08:36
PROVIDERS: ATTEND Specialist
DX: M51.37 Other intervertebral disc degeneration, lumbosacral region (principal); M47.817 Spondylosis without myelopathy or radiculopathy, lumbosacral region; Z87.891 Personal history of nicotine dependence; Z88.5 Allergy status to narcotic agent
CPT/HCPCS: 99211

== ENCOUNTER 2023-08-31 08:05 | Day surgery (SDC) | payer MEDICARE ==
[2023-08-30 10:35] VITALS: BMI 12.7
[2023-08-31] MEDS ORDERED: LACTATED RINGERS 1,000 ML IV SCH (08:17)
[2023-08-31 08:25] VITALS: TEMP 97.3
[2023-08-31] MEDS ORDERED: ROPIVACAINE 5MG/ML 20ML VIAL ONE (09:08)
[2023-08-31] MEDS ORDERED: methylPREDNISolone ACETATE 40 MG/ML 1 ML VIAL ONE (09:08)
--- NOTE | 2023-08-31 09:15 | P.PCN ---
Date of Procedure: 08/31/23 Procedure(s) Performed: Procedure= trigger point injections lumbar paraspinal muscles 3 on the left side lumbar paraspinal muscles, and 5 on the right side lumbar paraspinal muscles Preoperative diagnosis= 1-myofascial pain syndrome lumbar paraspinal muscles Postoperative diagnosis=Same as preop Diagnosis . Complication = none Condition= stable Anesthesia= none Indication for the procedure= patient complaining of low back pain , examination was positive for severe tenderness over the lumbar paraspinal muscles bilaterally and patient diagnosed with myofascial pain syndrome, and he is here today to have trigger point injections. Description of the procedure= procedure risk and benefits discussed with the patient, including but not limited, risk of infection and bleeding, and ALLERGIC reaction to the medication and not complete pain relief and patient agreed with the preceding patient taken to the operating room, placed in sitting position or standard monitors applied to the patient then after induction of anesthesia back prepped with chlorhexidine 3 times , then each of the trigger point that was identified in the preop holding area each one of them injected with a total of the mixture of ropivacaine 0.5% was mixed with the 40 mg of Depo-Medrol, total of 16 ML of ropivacaine mixed with 40 mg of Depo-Medrol ,and 2 mL of the mixture used for each trigger point injection then after negative aspiration and there was no paresthesia during the injection, injection done using 25-gauge needle ,total of 3 trigger point identified and injected on the left side lumbar paraspinal muscles and 5 on the right side lumbar paraspinal muscles patient tolerated the procedure well without any complications, and he was discharged home in stable condition
[2023-08-31 09:20] VITALS: RESP 16
[2023-08-31 09:33] VITALS: BP 141/67; PULSE 55
== END 2023-08-31 09:42 | disposition home or self-care (01) ==
LOC: ORPAIN 08:05
PROVIDERS: ATTEND Specialist
DX: M79.18 Myalgia, other site (principal); Z79.01 Long term (current) use of anticoagulants; Z88.5 Allergy status to narcotic agent
CPT/HCPCS: 20553; J2795; J1010

== ENCOUNTER → 2023-09-20 | Outpatient (CLI) | payer MEDICARE ==
[2023-09-20 09:03] VITALS: BP 153/69; PULSE 66; RESP 16; TEMP 97.6
--- NOTE | 2023-09-20 15:00 | P.PAINPG ---
PQRS Measure Charge Sheet Comment: A 73 yr old male with a history of severe and chronic LBP secondary to lumbar DDD and spondylosis with facet arthropathy without myelopathy presents today for evaluation s/p BL Lumbar TPI L2-S1 #3. Pt states he experienced 75 % pain relief x 3 wks s/p procedure. Pain level is provoked at 6 /10 in intensity, constant, localized in the lumbar spine, predominantly axial, dull in character w occasional shooting towards the BL thighs. Pain is provoked by twisting. Pain is alleviated with injections, topicals, PT in 2020, home exercise regimen and exercise 3 times weekly at [facility], repositioning and rest. Oswestry axial pain score of 24. Interventional pain procedures completed include BL Lumbar TPIs x7, BL SI x3 Patient is currently on Diclofenac gel Patient denies any side effects of the medication(s), denies excessive drowsiness or sleepiness, denies suicidal ideation and reports that the current pain medication is helping to control the pain and improve activities of daily living. Patient denies any motor or sensory deficits. Patient denies any fever or night sweats, denies any change in the bowel movements or urination. Physical Examination: -Constitutional: Cooperative. Not in acute distress . - Neurologic: Cranial nerve II to XII intact. No focal neurological deficits. - Psychatric: Alert & oriented x 3. Matching mood & appropriate affect. Judgment and insight intact. - Musculoskeletal: Cervical spine: Muscle bulk/ tone/ strength in the bilateral upper extremities normal Vertebral body tenderness to palpation over Spurling test positive Distraction test positive Facet loading test positive TTP Thoracic spine Muscle bulk / tone/ strength in the bilateral paraspinal muscles normal Vertebral body tender to palpation over Facet loading test positive TTP Lumbar spine: Motor bulk/ tone/ strength lower extremities , thigh and legs : 5/5 Deep tendon reflexes : Normal Knee Jerk. Normal Ankle Jerk . Vertebral body tenderness to palpation over L1 Rbuy test positive BL L1-L2 Lumbar Facet Loading Test positive BL lumbar paraspinal TTP L2-S1 Straight Leg Raise: positive at 30 degrees right side/ left side Gaenslen's Test positive Sacral spine : Severe tenderness over the Sacroiliac joint: right side / left side Range of motion: Flexion of the lumbar spine <60 degrees Range of motion: Extension of the lumbar spine <20 degrees Gaenslen's Test positive right side / left side Carmen test: positive right side / left side Thigh Thrust Test positive right side / left side Sacral Thrust Test positive right side / left side Imaging: CT non contrast of the lumbar spine from 05/23/23 reviewed Assessment and plan: Chronic LBP secondary to lumbar DDD, spondylosis with facet arthropathy without myelopathy Recommendation of ERROL L1-L2 #1. May need a series of injections for optimal pain relief. Risks, benefits of procedure discussed and pt verbalized un derstanding. Admits to anticoagulant use or medical history of diabetes. Protocol for discontinuation/ continuation of medications barbara procedure discussed. All questions answered. I have spent less than 30 minutes on patient care today. Dr Castro was available by phone for the evaluation of this patient. The time was used to review the medical records including relevant urine studies and Prescription history (MAPs), review of the available imaging, evaluation and examination of the patient, coordination of care with the medical staff and if applicable referring physicians, as well as creation of the medical record - Pain Location Lower Back Non-Pharmacological Interventions: Inactivity Pharmacological Interventions: Epidural, PRN Medication PQRS Narrative: Smoking Status Former smoker Hx Alcohol Use (MH) Yes: rare Home Medications: Ambulatory Orders Aspirin [Adult Low Dose Aspirin EC] 81 mg PO DAILY 12/20/14 Atorvastatin [Lipitor] 40 mg PO HS 12/20/14 Losartan/Hydrochlorothiazide [Losartan-Hctz 100-25 mg Tab] 1 tab PO DAILY 12/20/14 Multivit-Mins/Iron/Folic/Lycop [Centrum Men's Tablet] 1 tab PO DAILY 12/20/14 carBAMazepine [TEGretol XR] 100 mg PO DAILY 12/20/14 Ezetimibe [Zetia] 10 mg PO DAILY 11/22/17 Nitroglycerin Sl Tabs [Nitrostat] 0.4 mg SUBLINGUAL Q5M PRN #25 tab 11/25/17 carvediloL [Coreg*] 12.5 mg PO BID-W/MEALS #60 tab 01/10/18 Acetaminophen [Tylenol Extra Strength] 1,000 mg PO BID 01/02/21 Cetirizine HCl [Zyrtec] 10 mg PO DAILY PRN 01/02/21 Furosemide [Lasix] 20 mg PO DAILY PRN 01/02/21 Rivaroxaban [Xarelto] 20 mg PO 1900 01/02/21 Testosterone Cypionate [Depo-Testosterone] 200 mg IM Q14D 01/02/21 Ubidecarenone [Co Q-10] 100 mg PO DAILY 01/02/21 amLODIPine [Norvasc] 5 mg PO BID 01/02/21 hydrALAZINE HCL 25 mg PO BID 06/24/23 Controlled Substance Measures - Controlled Substance Measures Is patient prescribed a controlled substance at discharge?: No
== END ==
LOC: PNWHC3 08:43
PROVIDERS: ATTEND Specialist
DX: M51.36 Other intervertebral disc degeneration, lumbar region (principal); M47.816 Spondylosis without myelopathy or radiculopathy, lumbar region; Z87.891 Personal history of nicotine dependence; Z88.5 Allergy status to narcotic agent
CPT/HCPCS: 99211

== ENCOUNTER 2023-10-05 07:30 | Day surgery (SDC) | payer MEDICARE ==
[2023-10-05] MEDS ORDERED: TRIAMCINOLONE ACETONIDE 40 MG/ML 1 ML VIAL ONE (08:16)
[2023-10-05] MEDS ORDERED: ROPIVACAINE 5MG/ML 20ML VIAL ONE (08:16)
== END 2023-10-05 09:05 | disposition home or self-care (01) ==
LOC: ORPAIN 07:30
PROVIDERS: ATTEND Anesthesiology
DX: M54.16 Radiculopathy, lumbar region (principal); Z88.5 Allergy status to narcotic agent; Z79.01 Long term (current) use of anticoagulants; Z79.82 Long term (current) use of aspirin; Z79.899 Other long term (current) drug therapy
CPT/HCPCS: 20553

== ENCOUNTER 2023-11-30 07:34 | Day surgery (SDC) | payer MEDICARE ==
[~2023-11-30 07:34] MED LIST changes: -LACTATED RINGERS 1,000 ML IV SCH; +LIDOCAINE 1% (10MG/ML) FOR IV START INTRADERMA PRN
[2023-11-30 08:05] VITALS: RESP 16; TEMP 97.7
[2023-11-30] MEDS: LACTATED RINGERS 1,000 ML IV SCH (08:16)
[2023-11-30] MEDS: IV FLUID CONTINUATION 1,000 ML IV ONE (08:17)
[2023-11-30] MEDS ORDERED: PROPOFOL 10 MG/ML 20 ML VIAL IV ONE (08:40)
[2023-11-30] MEDS ORDERED: LIDOCAINE 2% (PF) 20 MG/ML 5 ML VIAL ONE (08:40)
--- NOTE | 2023-11-30 08:43 | P.GSHP ---
History of Present Illness H&P Date: 11/30/23 Chief Complaint: Dysphagia, screening 73-year-old male here for upper and lower endoscopy. Patient with progressive dysphagia with intermittent vomiting and regurgitation. 34 pound weight loss. Patient due for screening colonoscopy. Last colonoscopy 8 years ago. History of colon polyp. Past Medical History Past Medical History: CVA/TIA, GERD/Reflux, Hearing Disorder / Deafness, Hyperlipidemia, Hypertension, Myocardial Infarction ([place]), Osteoarthritis (OA), Sleep Apnea/CPAP/BIPAP Additional Past Medical History / Comment(s): TIA's-most recent about a year ago-no residual effects, CPAP use, nephrolithiasis and has 1 kidney stones still in kidney X10 yrs, crush injury yrs ago involving 2 vertebrae low back and L ankle, L leg larger due to injury, low testosterone, 2008 L rib fxs, still has small open "hole" left side where had surgery & had rib removed, low back pain., states recent MRI and screws from back surgery are coming out., [id number] (does not wear his hearing aides) Last Myocardial Infarction Date:: 11/22/17 History of Any Multi-Drug Resistant Organisms: None Reported Past Surgical History: Back Surgery, Heart Catheterization With Stent, Orthopedic Surgery, Tonsillectomy Additional Past Surgical History / Comment(s): 2008 repair L thoracic hernia (between ribs) with rib bx-benign, 6 cervical fusions done in 2 separate cervical surgeries, 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 cardiac stents [id number] Past Anesthesia/Blood Transfusion Reactions: No Reported Reaction Additional Past Anesthesia/Blood Transfusion Reaction / Comment(s): PONV X1 only. Date of Last Stent Placement:: 11/22/17 Smoking Status: Former smoker - Past Family History Father Family Medical History: CVA/TIA Additional Family Medical History / Comment(s): Father of CVA at age 80 yrs. Mother Family Medical History: Cancer Additional Family Medical History / Comment(s): Mother had multiple types of cancers. She at age 92 yrs. Medications and Allergies Home Medications Medication Instructions Recorded Confirmed Type Aspirin [Adult Low Dose Aspirin EC] 81 mg PO DAILY 12/20/14 11/26/23 History Atorvastatin [Lipitor] 40 mg PO HS 12/20/14 11/26/23 History Losartan/Hydrochlorothiazide 1 tab PO DAILY 12/20/14 11/26/23 History [Losartan-Hctz 100-25 mg Tab] Multivit-Mins/Iron/Folic/Lycop 1 tab PO DAILY 12/20/14 11/26/23 History [Centrum Men's Tablet] carBAMazepine [TEGretol XR] 200 mg PO DAILY 12/20/14 11/26/23 History Ezetimibe [Zetia] 10 mg PO DAILY 11/22/17 11/26/23 History Nitroglycerin Sl Tabs [Nitrostat] 0.4 mg SUBLINGUAL Q5M PRN #25 tab 11/25/17 11/26/23 Rx carvediloL [Coreg*] 12.5 mg PO BID-W/MEALS #60 tab 01/10/18 11/26/23 Rx Acetaminophen [Tylenol Extra 1,000 mg PO BID 01/02/21 11/30/23 History Strength] Cetirizine HCl [Zyrtec] 10 mg PO DAILY PRN 01/02/21 11/26/23 History Furosemide [Lasix] 20 mg PO DAILY PRN 01/02/21 11/30/23 History Rivaroxaban [Xarelto] 20 mg PO 1900 01/02/21 11/30/23 History Testosterone Cypionate 200 mg IM Q14D 01/02/21 11/30/23 History [Depo-Testosterone] Ubidecarenone [Co Q-10] 100 mg PO DAILY 01/02/21 11/26/23 History hydrALAZINE HCL 25 mg PO BID 06/24/23 11/26/23 History Allergies Allergy/AdvReac Type Severity Reaction Status Date / Time codeine AdvReac Nausea Verified 11/30/23 07:53 Surgical - Exam Vital Signs Temp Pulse Resp BP Pulse Ox 97.7 F 56 L 16 180/80 97 11/30/23 08:04 11/30/23 08:04 11/30/23 08:04 11/30/23 08:04 11/30/23 08:04 Physical exam: General: Well-developed, well-nourished HEENT: Normocephalic, sclerae nonicteric Abdomen: Nontender, nondistended Extremities: No edema Neuro: Alert and oriented Assessment and Plan (1) Dysphagia Narrative/Plan: Will proceed with upper and lower endoscopy at this time. Current Visit: No Status: Acute Code(s): R13.10 - DYSPHAGIA, UNSPECIFIED SNOMED Code(s): 53458341
--- NOTE | 2023-11-30 09:20 | P.PCN ---
Date of Procedure: 11/30/23 Procedure(s) Performed: PREOPERATIVE DIAGNOSIS: Dysphagia, screening, weight loss POSTOPERATIVE DIAGNOSIS: Duodenitis with erosions, gastritis with linear ulceration cardia of stomach, distal esophagitis, distal esophageal stricture, ascending and descending colon polyps PROCEDURE: 1. EGD with biopsy and dilation 2. Colonoscopy with snare polypectomy ANESTHESIA: [facility] [place] SURGEON: Cameron Monroe M.D. SPECIMENS: Duodenum, cardia of stomach, antrum, GE junction, colon polyps ENDOSCOPIC PROCEDURE: The patient was on the endoscopy table in the left decubitus position. The Olympus gastroscope was inserted into the oropharynx and passed under direct visualization to the region of the third portion of the duodenum. From that point the scope was slowly withdrawn inspecting all surfaces carefully. There was duodenitis present. Multiple superficial erosions were noted. A biopsy of the duodenum took place. The pylorus was widely patent. The stomach was then inspected including retroflexion. The patient had a mild gastritis distally. A biopsy of the antrum took place. Retroflexion revealed a linear ulceration in the cardia of the stomach. A biopsy of the edge of this ulceration took place. At the GE junction itself there was mild inflammatory changes noted. As we were first inserting the scope through the esophagus there was hesitancy in the distal esophagus suspicious for possible achalasia. There was no obvious mechanical narrowing. A dilation took place using the 12 to 15 mm balloon. Pressure was held at 12, 13.5, and 15 mm for 1 minute each. The remainder the esophagus appeared normal. The patient was kept on the endoscopy table in the left decubitus position. The Olympus colonoscope was inserted into the anus and passed under direct visualization to the base of the cecum. The appendiceal orifice was visualized. From that point the scope was slowly withdrawn inspecting all surfaces carefully. There was a small polyp in the ascending colon that was removed using the snare with cautery technique. The remainder of the ascending and transverse colon appeared normal. In the descending colon a small polyp was again noted and removed in a similar fashion. The remainder of the descending sigmoid and rectum appeared normal. The patient had small hemorrhoids. There was no visible diverticulosis. Digital rectal examination was normal. The patient was taken to the recovery room in stable condition per anesthesia guidelines. RECOMMENDATIONS: Await biopsy results. Begin antiacid therapy. Will require repeat EGD in 3 months. If dysphagia persist will require esophagram/barium swallow.
[2023-11-30 09:25] VITALS: PULSE 54
[2023-11-30 09:45] VITALS: BP 153/74
== END 2023-11-30 10:21 | disposition home or self-care (01) ==
LOC: ORWHC2ENDO 07:34
PROVIDERS: ATTEND Surgery
DX: Z12.11 Encounter for screening for malignant neoplasm of colon (principal); D12.2 Benign neoplasm of ascending colon; K63.5 Polyp of colon; K64.9 Unspecified hemorrhoids; K29.50 Unspecified chronic gastritis without bleeding; K29.80 Duodenitis without bleeding; K31.89 Other diseases of stomach and duodenum; K26.9 Duodenal ulcer, unspecified as acute or chronic, without hemorrhage or perforation; K22.2 Esophageal obstruction; K25.9 Gastric ulcer, unspecified as acute or chronic, without hemorrhage or perforation; K21.00 Gastro-esophageal reflux disease with esophagitis, without bleeding; Z86.0100 Personal history of colon polyps, unspecified; E78.5 Hyperlipidemia, unspecified; I10 Essential (primary) hypertension; I25.2 Old myocardial infarction; M19.90 Unspecified osteoarthritis, unspecified site; G47.33 Obstructive sleep apnea (adult) (pediatric); Z86.73 Personal history of transient ischemic attack (TIA), and cerebral infarction without residual deficits; Z87.442 Personal history of urinary calculi; Z90.89 Acquired absence of other organs; Z98.890 Other specified postprocedural states; Z87.891 Personal history of nicotine dependence; Z79.82 Long term (current) use of aspirin; Z79.899 Other long term (current) drug therapy; Z79.01 Long term (current) use of anticoagulants; Z95.5 Presence of coronary angioplasty implant and graft; Z88.5 Allergy status to narcotic agent; Z82.3 Family history of stroke; Z80.9 Family history of malignant neoplasm, unspecified
CPT/HCPCS: 45385; 43239; 43249; J2704; J2003; C1726; 88305; 88342

== ENCOUNTER 2024-03-08 11:30 | Day surgery (SDC) | payer MEDICARE ==
[2024-03-03 11:05] VITALS: BMI 26.6
[~2024-03-08 11:30] MED LIST changes: +LACTATED RINGERS 1,000 ML IV SCH; +ONDANSETRON 4 MG/2 ML VIAL IVP PRN
[2024-03-08] MEDS: IV FLUID CONTINUATION 500 ML IV ONE (12:17)
[2024-03-08 12:27] VITALS: TEMP 98.2
[2024-03-08] MEDS ORDERED: LIDOCAINE 1% INJ 10MG/ML (20 ML MDV) ONE (13:17)
[2024-03-08] MEDS ORDERED: PROPOFOL 10 MG/ML 20 ML VIAL IV ONE (13:17)
--- NOTE | 2024-03-08 13:29 | P.PCN ---
Date of Procedure: 03/08/24 Procedure(s) Performed: BRIEF HISTORY: Patient is a 73-year-old, pleasant, white male scheduled an upper endoscopy as a part of evaluation of progressive dysphagia to liquids and solids for the last 2 to 3 years duration. He had an upper endoscopy done by Dr. Monroe with dilation in November 2023 for with a 12 to 15 mm balloon and apparently he did better for a week. He started having worsening symptoms. He is not scheduled for a repeat upper endoscopy with possible dilation.. He lost 50 pounds in the last 1 year. PROCEDURE PERFORMED: Esophagogastroduodenoscopy. PREOPERATIVE DIAGNOSIS: Progressive dysphagia to liquids and solids of 2 to 3 years duration and weight loss of 50 pounds. IV sedation per anesthesia. PROCEDURE: After informed consent was obtained, the patient was brought into the endoscopy unit. IV sedation was administered by Anesthesia under continuous monitoring. Initially the Olympus GIF-140 video endoscope was inserted into the mouth. Esophagus intubated without any difficulty. It was gradually advanced into the distal esophagus. The esophagus appeared slightly dilated. There was almost a corkscrew appearing esophagus noted. The lower esophageal sphincter was extremely tight and with gentle pressure I was able to advance the scope into the stomach and duodenum and carefully examined. The bulb and the second part of the duodenum appeared normal. The scope at this time was withdrawn to the stomach, adequately insufflated with air, and upon careful examination, mucosa of the antrum, body, cardia and the fundus appeared normal. The scope was then withdrawn into the esophagus. The GE junction was located at 41 cm from the incisors. Once again the lower esophageal sphincter was extremely tight. The esophagus appeared normal. There were no erosions or ulcerations seen and the patient tolerated the procedure well. IMPRESSION: 1. Slightly dilated esophagus and tight lower esophageal sphincter highly suspicious for esophageal achalasia. 2. Stomach appeared normal. RECOMMENDATIONS: The findings of this examination were discussed with the patient as well as his family. Because of high clinical suspicion for esophageal achalasia he will be referred to [facility] for esophageal manometry and for further management..
[2024-03-08 13:36] VITALS: RESP 16
[2024-03-08 14:16] VITALS: BP 122/62; PULSE 67
== END 2024-03-08 14:33 | disposition home or self-care (01) ==
LOC: ORWHC2ENDO 11:30
PROVIDERS: ATTEND Internal Medicine Gastroenterology
DX: K22.89 Other specified disease of esophagus (principal); I25.2 Old myocardial infarction; I10 Essential (primary) hypertension; E78.5 Hyperlipidemia, unspecified; K21.9 Gastro-esophageal reflux disease without esophagitis; G40.909 Epilepsy, unspecified, not intractable, without status epilepticus; G47.33 Obstructive sleep apnea (adult) (pediatric); Z87.891 Personal history of nicotine dependence; Z99.89 Dependence on other enabling machines and devices; Z86.73 Personal history of transient ischemic attack (TIA), and cerebral infarction without residual deficits; Z95.5 Presence of coronary angioplasty implant and graft; Z79.01 Long term (current) use of anticoagulants; Z79.82 Long term (current) use of aspirin; Z79.899 Other long term (current) drug therapy; Z88.5 Allergy status to narcotic agent; Z98.890 Other specified postprocedural states
CPT/HCPCS: 43235